=== PATIENT | female | born 1965 | race Hispanic/Latino ===

== ENCOUNTER 2018-01-18 00:54 | Emergency (ER) | payer OTHER ==
[~2018-01-18] VITALS: Ht 167.6 cm; Wt 78.9 kg
[2018-01-18] MEDS ORDERED: SODIUM CHLORIDE 0.9% 1000ML 1,000 ML ONE (01:20)
[2018-01-18] MEDS ORDERED: ONDANSETRON HCL INJ 2 MG/ML VIAL ONE (01:24)
[2018-01-18 01:26] LABS: BASOPHILS % 0.4 % (0.0-1.0); EOSINOPHILS # (AUTO) 0.1 (0.0-0.4); EOSINOPHILS % 0.7 % (0.0-6.0); HEMATOCRIT 38.4 % (34.2-44.1); HEMOGLOBIN 13.1 g/dL (12.0-16.0); LYMPHOCYTES # (AUTO) 3.1 (1.0-3.2); LYMPHOCYTES % 28.2 % (18.0-39.1); MEAN CORPUSCULAR HEMOGLOBIN 30.7 pg (28-32); MEAN CORPUSCULAR HGB CONC 34.1 g/dL (31-35); MEAN CORPUSCULAR VOLUME 89.9 fL (81-99); MONOCYTES # (AUTO) 0.9 (0.2-0.8); MONOCYTES % 7.7 % (4.4-11.3); NEUTROPHILS # (AUTO) 6.9 (2.1-6.9); NEUTROPHILS % 62.7 % (38.7-80.0); PLATELET COUNT 291 x10e3/uL (140-360); RED BLOOD COUNT 4.27 x10e6/uL (3.6-5.1); RED CELL DISTRIBUTION WIDTH 12.4 % (11.7-14.4)
[2018-01-18 01:27] LABS: BILIRUBIN,URINE NEGATIVE (NEGATIVE); CLARITY,URINE CLEAR (CLEAR); COLOR,URINE YELLOW (YELLOW); KETONES,URINE TRACE (NEGATIVE); LEUKOCYTE ESTERASE ,URINE TRACE (NEGATIVE); NITRITE,URINE NEGATIVE (NEGATIVE); PROTEIN,URINE DIPSTICK NEGATIVE (NEGATIVE); URINE UROBILINOGEN 0.2 mg/dL (0.2 - 1)
[2018-01-18] MEDS ORDERED: ONDANSETRON HCL INJ 2 MG/ML VIAL IV STA (01:28)
[2018-01-18] MEDS ORDERED: ONDANSETRON HCL 4 MG ORAL DISINTEGRATING TAB PO ONE (01:30)
[2018-01-18] MEDS ORDERED: SODIUM CHLORIDE 0.9% 1000ML 1,000 ML IV ONE (01:30)
[2018-01-18 01:34] LABS: RBC,URINE 0-5 /HPF (0-5)
[2018-01-18 01:35] LABS: BACTERIA,URINE FEW /HPF; EPITHELIAL CELLS,URINE MODERATE /LPF
[2018-01-18 01:42] LABS: ALANINE AMINOTRANSFERASE 36 IU/L (0-55); ALBUMIN 3.8 g/dL (3.5-5.0); ALBUMIN/GLOBULIN RATIO 1.1 (0.8-2.0); ALKALINE PHOSPHATASE 113 IU/L (40-150); ANION GAP 12.9 mmol/L (8-16); BLOOD UREA NITROGEN 22 mg/dL (7-26); BUN/CREATININE RATIO 31 (6-25); CALCIUM 9.4 mg/dL (8.4-10.2); CARBON DIOXIDE 24 mmol/L (22-29); CHLORIDE 109 mmol/L (98-107); CREATINE KINASE 110 IU/L (29-168); CREATININE, SERUM 0.71 mg/dL (0.57-1.11); EST GLOMERULAR FILTRATION RATE > 60 ML/MIN (60-); GLUCOSE 214 mg/dL (74-118); POTASSIUM 3.9 mmol/L (3.5-5.1); SODIUM 142 mmol/L (136-145)
[2018-01-18 02:15] VITALS: BP 132/78
== END 2018-01-18 03:01 | disposition home or self-care (01) ==
LOC: ER 00:54
DX: E86.0 Dehydration (principal); R11.0 Nausea; N30.00 Acute cystitis without hematuria; R73.9 Hyperglycemia, unspecified; Z98.84 Bariatric surgery status
CPT/HCPCS: 36415; 80053; 81001; 82550; 82553; 84484; 85025; 93005; 96374; 99283; J2405; J7030

== ENCOUNTER 2019-02-14 20:27 | Emergency (ER) | payer OTHER ==
[~2019-02-14] VITALS: Ht 167.6 cm; Wt 78.9 kg
--- OUTSIDE RECORDS SUMMARY | 2019-02-14 20:30 | XMS REPORT | Clinical Summary ---
Author Author [facility] Address Unknown Phone Unavailable Care Team Providers Care Lag Screwer Name Role Phone Asked, No Pcp PCP Unavailable Allergies Comments Active Allergy Reactions Severity Noted Date Codeine Other (See Medium 10/09/2012 Comments) Meperidine Other (See 10/09/2012 Comments) Neuromuscular Blockers, Steroidal Medications No known medications Active Problems Problem Noted Date Left knee pain 12/09/2018 Degenerative disc disease, lumbar 12/09/2018 Encounters Care Team Description Date Type Specialty Nathan Esteves MD Park, Kwan Jun, MD Patellofemoral arthralgia of left knee (Primary Dx); Degenerative disc disease, lumbar 12/09/2018 Office Visit Orthopedic Surgery after 02/13/2018 Social History Date Tobacco Use Types Packs/Day Years Used Never Assessed Sex Assigned at Date Recorded Not on file Industry Job Start Date Occupation Not on file Not on file Not on file Travel End Travel History Travel Start No recent travel history available. Last Filed Vital Signs Not on file Plan of Treatment Health Maintenance Due Date Last Done Comments BREAST CANCER SCREENING 2013 COLONOSCOPY SCREENING 2013 SHINGLES VACCINES (#1) 2013 INFLUENZA VACCINE 03/06/2019 05/16/2017, 05/06/2016, 05/06/2015, Additional history exists Procedures Comments Procedure Name Priority Date/Time Associated Diagnosis XR LEG LENGTH EVALUATION Routine 12/09/2018 Left knee pain, 8:45 AM CDT unspecified chronicity XR KNEE 4+ VW LEFT Routine 12/09/2018 Left knee pain, 8:45 AM CDT unspecified chronicity after 02/13/2018 Results * XR Leg Length Evaluation (12/09/2018 8:45 AM CDT) Specimen Narrative Performed At [facility] Xrays of long legs demonstrate neutral alignment of bilateral lower extremities. There is evidence of degenerative lumbar disc disease with sclerosis and disc space narrowing. Performing Organization Address City/State/Zipcode Phone Number [facility] [address] [place] [address] * XR Knee 4+ Vw Left (12/09/2018 8:45 AM CDT) Specimen Narrative Performed At [facility] Xrays of the left knee demonstrate bilateral patellar tilt and minimal arthritic changes of the left knee. Some chondrosis of the underside of the left patella. Performing Organization Address City/State/Zipcode Phone Number [facility] [address] [place] [address] after 02/13/2018 Insurance Type Payer Benefit Subscriber ID Effective Phone Address Plan / Dates Group HMO JEREMY [employer]NA OPEN xxxxxxxxxxx 2017-P ACCESS/NET resent WORK ([place]) [place] [address] Advance Directives Patient has advance care planning documents on file. For more information, carmen mcgowan contact: Ruel Hammer [address] [place] [address]
--- OUTSIDE RECORDS SUMMARY | 2019-02-14 20:31 | XMS REPORT | Continuity of Care Document ---
Author Author [facility] [employer] Address Unknown Phone Unavailable Care Team Providers Care Training And Quality Manager Name Role Phone [employer] Unavailable Unavailable Problems Problem Status Onset Date Classification Date Reported Comments Source Elevated blood pressure 11/06/2018 Diagnosis 11/06/2018 [facility] Body mass index 30+ - obesity 11/06/2018 Diagnosis 11/06/2018 [facility] Nausea and vomiting 11/06/2018 Diagnosis 11/06/2018 [facility] Influenza-like illness 11/06/2018 Diagnosis 11/06/2018 [facility] Influenza-like symptoms 06/17/2018 Diagnosis 06/17/2018 [facility] Blood in urine 06/17/2018 Diagnosis 06/17/2018 [facility] Urinary tract infectious disease 06/17/2018 Diagnosis 06/17/2018 [facility] Urinary Tract Infectious Disease 06/17/2018 Problem 11/06/2018 [facility] Body Mass Index 30+ - Obesity 06/17/2018 Problem 11/06/2018 [facility] Blood in Urine 06/17/2018 Problem 11/06/2018 [facility] Influenza-like Symptoms 06/17/2018 Problem 11/06/2018 [facility] Proteinuria 06/17/2018 Problem 11/06/2018 [facility] Glycosuria 06/17/2018 Problem 11/06/2018 [facility] Ketonuria 06/17/2018 Problem 11/06/2018 [facility] Allergic rhinitis 05/10/2017 Diagnosis 05/10/2017 [facility] Upper respiratory infection 05/10/2017 Diagnosis 05/10/2017 [facility] Acute pharyngitis 01/01/2017 Diagnosis 01/01/2017 [facility] Cellulitis of hand 11/12/2016 Diagnosis 11/12/2016 [facility] Infection of toe 07/21/2016 Diagnosis 07/21/2016 [facility] Callosity on toe 07/21/2016 Diagnosis 07/21/2016 [facility] Acute sinusitis 05/16/2016 Diagnosis 05/16/2016 [facility] Eustachian tube disorder 05/16/2016 Diagnosis 05/16/2016 [facility] Sore throat symptom 03/31/2016 Diagnosis 03/31/2016 [facility] Onychomycosis Problem 05/10/2017 [facility] Eustachian Tube Disorder Problem 05/10/2017 [facility] Acute Sinusitis Problem 05/10/2017 [facility] Acute Pharyngitis Problem 05/10/2017 [facility] Sore Throat Symptom Problem 05/10/2017 [facility] Allergic Rhinitis Problem 05/10/2017 [facility] Infection of Toe Problem 05/10/2017 [facility] Callosity on Toe Problem 05/10/2017 [facility] Dizziness Problem 05/10/2017 [facility] Cough Problem 05/10/2017 [facility] Vomiting Active Problem 01/18/2018 [facility] Medications Medication Details Route Status Patient Instructions Ordering Provider Order Date Source Sulfamethoxazole 800 MG / Trimethoprim 160 MG Oral Tablet [Bactrim] Bactrim DS 800 mg-160 mg tablet Take 1 tablet every 12 hours by oral route as directed for 10 days. Active [facility] Fluticasone propionate 0.05 MG/ACTUAT Metered Dose Nasal [place] fluticasone 50 mcg/actuation nasal spray,suspension Inhale 2 sprays every day by intranasal route at bedtime for 7 days. Active [facility] levocetirizine dihydrochloride 5 MG Oral Tablet [Xyzal] Xyzal 5 mg tablet Take 1 tablet every day by oral route at bedtime for allergies. Active [facility] Azithromycin 250 MG Oral Tablet Zithromax Z-Kendall 250 mg tablet TAKE 2 TABLETS (500 MG) BY ORAL ROUTE ONCE DAILY FOR 1 DAY THEN 1 TABLET (250 MG) BY ORAL ROUTE ONCE DAILY FOR 4 DAYS Active [facility] benzonatate 200 MG Oral Capsule benzonatate 200 mg capsule Take 1 capsule 3 times a day by oral route as needed for cough for 10 days. Active [facility] Medrol (Kendall) 4 mg tablets in a dose pack Medrol (Kendall) 4 mg tablets in a dose pack Take as directed on package. Active [facility] Amoxicillin 875 MG / Clavulanate 125 MG Oral Tablet amoxicillin 875 mg-potassium clavulanate 125 mg tablet Take 1 tablet(s) every 12 hours by oral route as directed for 7 days. Active [facility] Azithromycin 500 MG Oral Tablet azithromycin 500 mg tablet Active [facility] Acetaminophen 21.7 MG/ML / Hydrocodone Bitartrate 0.5 MG/ML Oral Solution hydrocodone 7.5 mg-acetaminophen 325 mg/15 mL oral solution Active [facility] 3 ML insulin detemir 100 UNT/ML Pen Injector [Levemir] Levemir Flexpen 100 unit/mL (3 mL) solution subcutaneous insulin pen Active [facility] Levofloxacin 500 MG Oral Tablet levofloxacin 500 mg tablet Active [facility] NITROFURANTOIN, MACROCRYSTALS 25 MG / Nitrofurantoin, Monohydrate 75 MG Oral Capsule [Macrobid] Macrobid 100 mg capsule Take 1 capsule(s) every 12 hours by oral route with meals for 7 days. Active [facility] Mupirocin 20 MG/ML Topical Cream mupirocin 2 % topical cream Active [facility] 200 ACTUAT Albuterol 0.09 MG/ACTUAT Metered Dose Inhaler [ProAir] ProAir HFA 90 mcg/actuation aerosol inhaler Active [facility] Dextromethorphan 3 MG/ML / Promethazine Hydrochloride 1.25 MG/ML Oral Solution promethazine-DM 6.25 mg-15 mg/5 mL syrup Take 5 mL every 6 hours by oral route as needed for 5 days. Active [facility] tizanidine 4 MG Oral Tablet tizanidine 4 mg tablet Active [facility] valacyclovir 500 MG Oral Tablet valacyclovir 500 mg tablet Active [facility] 3 ML liraglutide 6 MG/ML Pen Injector [Victoza] Victoza 3-Kendall 0.6 mg/0.1 mL (18 mg/3 mL) subcutaneous pen injector Active [facility] 200 ACTUAT Albuterol 0.09 MG/ACTUAT Metered Dose Inhaler albuterol sulfate HFA 90 mcg/actuation aerosol inhaler Inhale 2 puffs every 4 hours by inhalation route as needed. Active [facility] Prednisone 20 MG Oral Tablet prednisone 20 mg tablet Take 1 tablet every day by oral route with meals for 3 days. Active [facility] Cephalexin 500 MG Oral Capsule cephalexin 500 mg capsule Active [facility] Ciprofloxacin 500 MG Oral Tablet ciprofloxacin 500 mg tablet Active [facility] Doxepin Hydrochloride 50 MG/ML Topical Cream doxepin 5 % topical cream Active [facility] Ibuprofen 400 MG Oral Tablet ibuprofen 400 mg tablet Active [facility] levocetirizine dihydrochloride 5 MG Oral Tablet levocetirizine 5 mg tablet Take 1 tablet every day by oral route at bedtime for allergies. Active [facility] Lidocaine 0.05 MG/MG Topical Ointment lidocaine 5 % topical ointment Active [facility] Lidocaine Hydrochloride 20 MG/ML Mucous Membrane Topical Solution Lidocaine Viscous 2 % mucosal solution Take 15 mL every 3 hours by oral route as needed. Active [facility] Mupirocin 0.02 MG/MG Topical Ointment mupirocin 2 % topical ointment APPLY A SMALL AMOUNT TO THE AFFECTED AREA BY TOPICAL ROUTE 3 TIMES PER DAY Active [facility] Sulfamethoxazole 800 MG / Trimethoprim 160 MG Oral Tablet sulfamethoxazole 800 mg-trimethoprim 160 mg tablet Take 1 tablet every 12 hours by oral route as directed for 10 days. Active [facility] Ondansetron 8 MG Disintegrating Oral Tablet ondansetron [address] 1 tablet every 8 hours by translingual route for 2 days. Active [facility] Oseltamivir 75 MG Oral Capsule [Tamiflu] Tamiflu 75 mg capsule Take 1 capsule twice a day by oral route for 5 days. Active [facility] Ciprofloxacin 250 MG Oral Tablet ciprofloxacin 250 mg tablet Take 1 tablet every 12 hours by oral route as directed for 3 days. Active [facility] Allergies, Adverse Reactions, Alerts Substance Category Reaction Severity Reaction type Status Date Reported Comments Source Codeine Vomiting Moderate Allergy to substance 03/16/2016 [facility] Meperidine Unknown Allergy to Substance Active 01/18/2018 [facility] Immunizations Immunization Date Given Site Status Last Updated Comments Source influenza, injectable, quadrivalent 05/06/2018 completed [facility] influenza, injectable, quadrivalent 05/03/2017 completed [facility] influenza, unspecified formulation 05/06/2016 completed [facility] influenza, seasonal, injectable 05/06/2015 completed [facility] Tdap 08/06/2010 completed [facility] Results Order Name Results Value Reference Range Date Interpretation Comments Source Influenza A negative 11/06/2018 [facility] Influenza B negative 11/06/2018 [facility] Glucose [Mass/volume] in Capillary blood Results 167 06/17/2018 [facility] Urinalysis macro (dipstick) panel - Urine COLOR : Suzanne 06/17/2018 [facility] Urinalysis macro (dipstick) panel - Urine CLARITY : Turbid 06/17/2018 [facility] Urinalysis macro (dipstick) panel - Urine LEUKOCYTES : Moderate 06/17/2018 [facility] Urinalysis macro (dipstick) panel - Urine NITRITES : Negative 06/17/2018 [facility] Urinalysis macro (dipstick) panel - Urine UROBILINOGEN : Normal 06/17/2018 [facility] Urinalysis macro (dipstick) panel - Urine PROTEIN : 100 06/17/2018 [facility] Urinalysis macro (dipstick) panel - Urine pH : 8.5 06/17/2018 [facility] Urinalysis macro (dipstick) panel - Urine BLOOD : Negative 06/17/2018 [facility] Urinalysis macro (dipstick) panel - Urine SPECIFIC GRAVITY : 1.005 06/17/2018 [facility] Urinalysis macro (dipstick) panel - Urine KETONES : Trace 06/17/2018 [facility] Urinalysis macro (dipstick) panel - Urine BILIRUBIN : Small 06/17/2018 [facility] Urinalysis macro (dipstick) panel - Urine GLUCOSE 100 06/17/2018 [facility] Influenza A negative 06/17/2018 [facility] Influenza B negative 06/17/2018 [facility] Automated blood basophil count (count/volume) Automated blood basophil count (count/volume) 0.0 0.0 - 0.1 01/18/2018 [facility] Automated blood basophil count as percentage of total leukocytes Automated blood basophil count as percentage of total leukocytes 0.4 0.0 - 1.0 01/18/2018 [facility] Automated blood eosinophil count Automated blood eosinophil count 0.1 0.0 - 0.4 01/18/2018 [facility] Automated blood eosinophil count as percentage of total leukocytes Automated blood eosinophil count as percentage of total leukocytes 0.7 0.0 - 6.0 01/18/2018 [facility] Automated blood hematocrit (volume fraction) Automated blood hematocrit (volume fraction) 38.4 34.2 - 44.1 01/18/2018 [facility] Automated blood lymphocyte count as percentage ot total leukocytes Automated blood lymphocyte count as percentage ot total leukocytes 28.2 18.0 - 39.1 01/18/2018 [facility] Automated blood monocyte count as percentage of total leukocytes Automated blood monocyte count as percentage of total leukocytes 7.7 4.4 - 11.3 01/18/2018 [facility] Automated blood neutrophil count Automated blood neutrophil count 6.9 2.1 - 6.9 01/18/2018 [facility] Automated blood platelet count (count/volume) Automated blood platelet count (count/volume) 291 140 - 360 01/18/2018 [facility] Automated blood segmented neutrophil count as percentage of total leukocytes Automated blood segmented neutrophil count as percentage of total leukocytes 62.7 38.7 - 80.0 01/18/2018 [facility] Automated erythrocyte mean corpuscular hemoglobin (mass per erythrocyte) Automated erythrocyte mean corpuscular hemoglobin (mass per erythrocyte) 30.7 28 - 32 01/18/2018 [facility] Automated erythrocyte mean corpuscular hemoglobin concentration measurement (mass/volume) Automated erythrocyte mean corpuscular hemoglobin concentration measurement (mass/volume) 34.1 31 - 35 01/18/2018 [facility] Automated erythrocyte mean corpuscular volume Automated erythrocyte mean corpuscular volume 89.9 81 - 99 01/18/2018 [facility] Automated urine sediment leukocyte count by microscopy (number/high power field) Automated urine sediment leukocyte count by microscopy (number/high power field) <10 0 - 5 01/18/2018 [facility] Bacteria detection in urine sediment by light microscopy Bacteria detection in urine sediment by light microscopy FEW NONE 01/18/2018 [facility] Blood erythrocytes automated count (number/volume) Blood erythrocytes automated count (number/volume) 4.27 3.6 - 5.1 01/18/2018 [facility] Blood hemoglobin measurement (moles/volume) Blood hemoglobin measurement (moles/volume) 13.1 12.0 - 16.0 01/18/2018 [facility] Blood leukocytes automated count (number/volume) Blood leukocytes automated count (number/volume) 11.04 4.8 - 10.8 01/18/2018 [facility] Blood lymphocytes count (number/volume) Blood lymphocytes count (number/volume) 3.1 1.0 - 3.2 01/18/2018 [facility] Blood monocytes automated count (number/volume) Blood monocytes automated count (number/volume) 0.9 0.2 - 0.8 01/18/2018 [facility] Epithelial cells detection in urine sediment by light microscopy Epithelial cells detection in urine sediment by light microscopy MODERATE NONE 01/18/2018 [facility] Erythrocytes detection in urine sediment by light microscopy Erythrocytes detection in urine sediment by light microscopy <5 0 - 5 01/18/2018 [facility] Estimated glomerular filtration rate (GFR) determination Estimated glomerular filtration rate (GFR) determination >60 60 01/18/2018 [facility] Glucose measurement Glucose measurement 214 74 - 118 01/18/2018 [facility] Plasma globulin measurement (mass/volume) Plasma globulin measurement (mass/volume) 3.5 2.3 - 3.5 01/18/2018 [facility] Serum or plasma alanine aminotransferase measurement (enzymatic activity/volume) Serum or plasma alanine aminotransferase measurement (enzymatic activity/volume) 36 0 - 55 01/18/2018 [facility] Serum or plasma albumin measurement (mass/volume) Serum or plasma albumin measurement (mass/volume) 3.8 3.5 - 5.0 01/18/2018 [facility] Serum or plasma albumin/globulin mass ratio Serum or plasma albumin/globulin mass ratio 1.1 0.8 - 2.0 01/18/2018 [facility] Serum or plasma alkaline phosphatase measurement (enzymatic activity/volume) Serum or plasma alkaline phosphatase measurement (enzymatic activity/volume) 113 40 - 150 01/18/2018 [facility] Serum or plasma anion gap Serum or plasma anion gap 12.9 8 - 16 01/18/2018 [facility] Serum or plasma calcium measurement (mass/volume) Serum or plasma calcium measurement (mass/volume) 9.4 8.4 - 10.2 01/18/2018 [facility] Serum or plasma carbon dioxide, total measurement (moles/volume) Serum or plasma carbon dioxide, total measurement (moles/volume) 24 22 - 29 01/18/2018 [facility] Serum or plasma chloride measurement (moles/volume) Serum or plasma chloride measurement (moles/volume) 109 98 - 107 01/18/2018 [facility] Serum or plasma creatine kinase MB measurement (mass/volume) Serum or plasma creatine kinase MB measurement (mass/volume) 1.50 0 - 5.0 01/18/2018 [facility] Serum or plasma creatine kinase measurement (enzymatic activity/volume) Serum or plasma creatine kinase measurement (enzymatic activity/volume) 110 29 - 168 01/18/2018 [facility] Serum or plasma creatinine measurement (mass/volume) Serum or plasma creatinine measurement (mass/volume) 0.71 0.57 - 1.11 01/18/2018 [facility] Serum or plasma potassium measurement (moles/volume) Serum or plasma potassium measurement (moles/volume) 3.9 3.5 - 5.1 01/18/2018 [facility] Serum or plasma protein measurement (mass/volume) Serum or plasma protein measurement (mass/volume) 7.3 6.5 - 8.1 01/18/2018 [facility] Serum or plasma sodium measurement (moles/volume) Serum or plasma sodium measurement (moles/volume) 142 136 - 145 01/18/2018 [facility] Serum or plasma total bilirubin measurement (mass/volume) Serum or plasma total bilirubin measurement (mass/volume) 0.3 0.2 - 1.2 01/18/2018 [facility] Serum or plasma urea nitrogen measurement (mass/volume) Serum or plasma urea nitrogen measurement (mass/volume) 22 7 - 26 01/18/2018 [facility] Serum or plasma urea nitrogen/creatinine mass ratio Serum or plasma urea nitrogen/creatinine mass ratio 31 6 - 25 01/18/2018 [facility] Specific gravity of Urine by Test strip Specific gravity of Urine by Test strip 1.015 1.010 - 1.025 01/18/2018 [facility] Troponin I measurement by highly sensitive enzyme immunoassay Troponin I measurement by highly sensitive enzyme immunoassay <0.001 0 - 0.300 01/18/2018 [facility] Urine clarity Urine clarity CLEAR CLEAR 01/18/2018 [facility] Urine color determination Urine color determination YELLOW YELLOW 01/18/2018 [facility] Urine erythrocytes detection Urine erythrocytes detection NEGATIVE NEGATIVE 01/18/2018 [facility] Urine glucose detection Urine glucose detection 2+ NEGATIVE 01/18/2018 [facility] Urine ketones detection by automated test strip Urine ketones detection by automated test strip TRACE NEGATIVE 01/18/2018 [facility] Urine leukocyte esterase detection by dipstick Urine leukocyte esterase detection by dipstick TRACE NEGATIVE 01/18/2018 [facility] Urine nitrite detection Urine nitrite detection NEGATIVE NEGATIVE 01/18/2018 [facility] Urine pH measurement by automated test strip Urine pH measurement by automated test strip 6.5 5 - 7 01/18/2018 [facility] Urine protein measurement by test strip (mass/volume) Urine protein measurement by test strip (mass/volume) NEGATIVE NEGATIVE 01/18/2018 [facility] Urine total bilirubin measurement (mass/volume) Urine total bilirubin measurement (mass/volume) NEGATIVE NEGATIVE 01/18/2018 [facility] Urine urobilinogen measurement by test strip (mass/volume) Urine urobilinogen measurement by test strip (mass/volume) 0.2 0.2 - 1 01/18/2018 [facility] Red Cell Distribution Width 12.4 11.7 - 14.4 01/18/2018 [facility] IM GRANULOCYTES % 0.3 0.0 - 1.0 01/18/2018 [facility] Absolute Immature Granulocyte (auto 0.03 0 - 0.1 01/18/2018 [facility] Aspartate Amino Transf (AST/SGOT) 18 5 - 34 01/18/2018 [facility] RESULT negative 01/01/2017 [facility] SWAB LOCATION Left and Right tonsillar pillars 01/01/2017 [facility] Influenza A negative 05/16/2016 [facility] Influenza B negative 05/16/2016 [facility] RESULT negative 05/16/2016 [facility] SWAB LOCATION Left and Right tonsillar pillars 05/16/2016 [facility] Glucose [Mass/volume] in Capillary blood Results 116 03/31/2016 [facility] Urinalysis macro (dipstick) panel - Urine COLOR : Yellow 03/31/2016 [facility] Urinalysis macro (dipstick) panel - Urine CLARITY : Clear 03/31/2016 [facility] Urinalysis macro (dipstick) panel - Urine LEUKOCYTES : Small 03/31/2016 [facility] Urinalysis macro (dipstick) panel - Urine NITRITES : Negative 03/31/2016 [facility] Urinalysis macro (dipstick) panel - Urine UROBILINOGEN : Normal 03/31/2016 [facility] Urinalysis macro (dipstick) panel - Urine PROTEIN : Trace 03/31/2016 [facility] Urinalysis macro (dipstick) panel - Urine pH : 5.5 03/31/2016 [facility] Urinalysis macro (dipstick) panel - Urine BLOOD : Negative 03/31/2016 [facility] Urinalysis macro (dipstick) panel - Urine SPECIFIC GRAVITY : 1.020 03/31/2016 [facility] Urinalysis macro (dipstick) panel - Urine KETONES : Negative 03/31/2016 [facility] Urinalysis macro (dipstick) panel - Urine BILIRUBIN : Negative 03/31/2016 [facility] Urinalysis macro (dipstick) panel - Urine GLUCOSE 250 (+) 03/31/2016 [facility] RESULT negative 03/31/2016 [facility] SWAB LOCATION Left and Right tonsillar pillars 03/31/2016 [facility] Bacteria identified in Urine by Culture Bacteria identified in Urine by Culture Result 1 03/17/2016 [facility] Glucose [Mass/volume] in Capillary blood Results 116 03/15/2016 [facility] Urinalysis macro (dipstick) panel - Urine COLOR : Yellow 03/15/2016 [facility] Urinalysis macro (dipstick) panel - Urine CLARITY : Clear 03/15/2016 [facility] Urinalysis macro (dipstick) panel - Urine LEUKOCYTES : Small 03/15/2016 [facility] Urinalysis macro (dipstick) panel - Urine NITRITES : Negative 03/15/2016 [facility] Urinalysis macro (dipstick) panel - Urine UROBILINOGEN : Normal 03/15/2016 [facility] Urinalysis macro (dipstick) panel - Urine PROTEIN : Trace 03/15/2016 [facility] Urinalysis macro (dipstick) panel - Urine pH : 5.5 03/15/2016 [facility] Urinalysis macro (dipstick) panel - Urine BLOOD : Negative 03/15/2016 [facility] Urinalysis macro (dipstick) panel - Urine SPECIFIC GRAVITY : 1.020 03/15/2016 [facility] Urinalysis macro (dipstick) panel - Urine KETONES : Negative 03/15/2016 [facility] Urinalysis macro (dipstick) panel - Urine BILIRUBIN : Negative 03/15/2016 [facility] Urinalysis macro (dipstick) panel - Urine GLUCOSE 250 (+) 03/15/2016 [facility] Pathology Reports No Data Provided for This Section Diagnostic Reports No Data Provided for This Section Consultation Notes No Data Provided for This Section Discharge Summaries No Data Provided for This Section History and Physicals No Data Provided for This Section Vital Signs Vital Sign Value Date Comments Source Diastolic (mm Hg) 74 11/06/2018 [facility] Height 66 11/06/2018 [facility] Systolic (mm Hg) 120 11/06/2018 [facility] Weight 194 11/06/2018 [facility] Diastolic (mm Hg) 74 06/17/2018 [facility] Height 66 06/17/2018 [facility] Systolic (mm Hg) 116 06/17/2018 [facility] Weight 198 06/17/2018 [facility] Diastolic (mm Hg) 82 05/10/2017 [facility] Height 66 05/10/2017 [facility] Systolic (mm Hg) 114 05/10/2017 [facility] Weight 195 05/10/2017 [facility] Diastolic (mm Hg) 74 01/01/2017 [facility] Height 66 01/01/2017 [facility] Systolic (mm Hg) 130 01/01/2017 [facility] Weight 197 01/01/2017 [facility] Diastolic (mm Hg) 82 11/12/2016 [facility] Height 66 11/12/2016 [facility] Systolic (mm Hg) 134 11/12/2016 [facility] Weight 198 11/12/2016 [facility] Diastolic (mm Hg) 74 07/21/2016 [facility] Height 66 07/21/2016 [facility] Systolic (mm Hg) 122 07/21/2016 [facility] Weight 192 07/21/2016 [facility] Diastolic (mm Hg) 85 05/16/2016 [facility] Height 65 05/16/2016 [facility] Systolic (mm Hg) 123 05/16/2016 [facility] Weight 180 05/16/2016 [facility] Diastolic (mm Hg) 80 03/31/2016 [facility] Height 65 03/31/2016 [facility] Systolic (mm Hg) 122 03/31/2016 [facility] Weight 179 03/31/2016 [facility] Diastolic (mm Hg) 80 03/15/2016 [facility] Height 66 03/15/2016 [facility] Systolic (mm Hg) 130 03/15/2016 [facility] Weight 178 03/15/2016 [facility] Encounters Location Location Details Encounter Type Encounter Number Reason For Visit Attending Provider ADM Date DC Date Status Source [place] - [facility] - [id number] Ce Urlich, SOAP INSPECTOR: [address] [place] [address], Ph. [id number] eC Ulrich 03/15/2016 [facility] [place] [facility] - [id number] Ulrich, SOAP INSPECTOR: [address] [place] [address], Ph. [id number] Ce Ulrich 03/15/2016 [facility] [place] [facility] - [id number] Cherelle Hooks, SOAP INSPECTOR: [address], [place] [address], Ph. [id number] Cherelle Hooks 03/31/2016 [facility] [place] [facility] - [id number] Cherelle Hooks, SOAP INSPECTOR: [address] [facility], [place] [address], Ph. [id number] Cherelle Neva 05/16/2016 [facility] [place] [facility] - [id number] Cherelle Neva, SOAP INSPECTOR: [address], [place] [address], Ph. [id number] Cherelle Neva 07/21/2016 [facility] [place] [facility] - [id number] Patricia Gomesroy, SOAP INSPECTOR-C: [address], [place] [address], Ph. [id number] Patricia Bernadette 11/12/2016 [facility] [place] [facility] - [id number] Thackery, SOAP INSPECTOR-C: [address], [place] [address], Ph. [id number] Patricia Fleming 01/01/2017 [facility] [place] [facility] - [id number] Tillmanen, SOAP INSPECTOR-C: [address], [place] [address], Ph. [phone] [id number] Narciso Hooks 05/10/2017 [facility] Departed Emergency Room [id number] KELLY ASH MD 01/18/2018 01/18/2018 [facility] [place] - [facility] - [id number] Fleming, SOAP INSPECTOR-C: [address], [place] [address], Ph. [id number] Patricia Fleming 06/17/2018 [facility] [place] [facility] - [id number] Jeri Martin, [facility]-C: [address] [address], [place] [address], Ph. [id number] Jeri Martin 11/06/2018 [facility] Procedures No Data Provided for This Section Assessment and Plan No Data Provided for This Section Plan of Care Plan of Care Date Source Discharge Date 01/18/18 3:01am Disposition HOME, SELF-CARE Condition at Discharge Stable Instructions/Education Provided Dehydration - Adult Hyperglycemia Urinary Tract Infection - Women Forms Provided Work/School Excuse Prescriptions See Medication Section Referrals SULEMAN JOYA MD Order Date: Call for an appointment Address: [address] [place] [address] Additional Instructions/Education TAKE MEDICATIONS PRESCRIBED. FOLLOW UP WITH YOUR DOCTOR. CALL FOR APPOINTMENT. 01/18/2018 [facility] Social History Social History Date Source Smoking Status Start Date Stop Date Never Smoker 01/18/2018 [facility] Smoking Status Never Smoker 12/28/2014 [facility] Family History No Data Provided for This Section Advance Directives Order Name Results Value Date Source Advance Directives Advance Directives Directive Response Recorded Date/Time Does the patient have an advance directive? No 05/13/08 7:29am If yes, is advance directive on file with [facility]? No 05/13/08 7:29am If not on file with [facility] will patient provide a copy? No 03/01/14 10:23am Do you have a Directive to Physician? No 01/18/18 12:52am Do you have a Medical Power of Forensic Engineer? No 01/18/18 12:52am Do you have an out of hospital Do Not Resuscitate Order? No 01/18/18 12:52am Do you have any special needs we should be aware of? No 01/18/18 12:52am Do you have a support person here with you today? Yes 01/18/18 12:52am Did patient receive Notice of Privacy Practices? Yes 01/18/18 12:52am Did patient receive patient rights and responsibilities? Yes 01/18/18 12:52am 01/18/2018 [facility] Functional Status No Data Provided for This Section
--- OUTSIDE RECORDS SUMMARY | 2019-02-14 20:32 | XMS REPORT | Encounter Summary ---
Author Organization Unknown Address [address] [place] [address] Phone [phone] Reason for Visit Medical Complaint Instructions 1. Upper respiratory infection upper respiratory infection (cold): care instructions 2. Allergic rhinitis allergies: care instructions managing your allergies: care instructions prednisone 20 mg tablet albuterol sulfate HFA 90 mcg/actuation aerosol inhaler Discussion Note: None recorded. Plan of Care Patient Instructions consider a trial of flonase and zyrtec if you havent already. follow up pcp Reminders Provider Appointments None recorded. Lab None recorded. Referral None recorded. Procedures None recorded. Surgeries None recorded. Imaging None recorded. Medications Name Start Date albuterol sulfate HFA 90 mcg/actuation aerosol inhaler Inhale 2 puffs every 4 hours by inhalation route as needed. prednisone 20 mg tablet Take 1 tablet every day by oral route with meals for 3 days. Medications Administered None recorded. Vitals Height Weight BMI Blood Pressure 5 ft 6 in 195 lbs 31.5 kg/m2 114/82 mm[Hg] Lab Results None recorded. Allergies Code Code System Name Reaction Severity Status Onset 2670 RxNorm Codeine Vomiting Moderate Active Problems Name Status Onset Date Source Onychomycosis Active Encounter Eustachian Tube Disorder Active Encounter Acute Sinusitis Active Encounter Acute Pharyngitis Active Encounter Sore Throat Symptom Active Encounter Allergic Rhinitis Active Encounter Urinary Tract Infectious Disease Active Encounter Infection of Toe Active Encounter Callosity on Toe Active Encounter Dizziness Active Encounter Cough Active Encounter Procedures None recorded. Vaccine List Vaccine Type influenza, injectable, quadrivalent 05/03/2017 influenza, seasonal, injectable 05/06/2015 influenza, unspecified formulation 05/06/2016 Tdap 08/06/2010 Social History Smoking Status Never Smoker Past Encounters 05/10/2017 Upper Respiratory Infection; Allergic Rhinitis [facility]: [address] [place] [address], Ph. History of Present Illness Rjyni-Exteczqpqd-Angqwdd Reported By: Patient HPI: Location: head/sinuses. Quality: nasal/sinus congestion, dry cough. Duration: 4days. Severity: moderate. Onset/Timing: gradual. Context: no sick contacts, no foreign travel, non-smoker. Modifying factors: OTC medication. Associated Symptoms: no sputum production, no shortness of breath, no wheezing, no change in number of pillows needed to sleep at night, no sweats, no significant weight gain, no significant weight loss, no morning cough, no sore throat, no vomiting, no diarrhea, no rash, no nausea, no fever, no muscle aches, no headache Review of Systems:ROS as noted in the HPI Review of Systems Basic Reported By: Patient Physical Exam Adult Basic, Adult Female Complete Reported By: Patient Constitutional: General Appearance: healthy-appearing, well-nourished, well-developed. Level of Distress: NAD. Ambulation: ambulating normally Psychiatric: Mental Status: active and alert Eyes: Lids and Conjunctivae: non-injected, no discharge Rhs-Smmq-Yvhns-Throat: Ears: no lesions on external ear, no outer ear tenderness, EACs clear, TMs clear. Hearing: no hearing loss. Nose: no lesions on external nose, nares patent, no septal deviation, nasal passages clear, no sinus tenderness, no nasal discharge. Lips, Teeth, and Gums: no mouth or lip ulcers. Oropharynx: moist mucous membranes, no erythema, no exudates, tonsils not enlarged Neck: Neck: trachea midline. Lymph Nodes: no cervical LAD Lungs: Respiratory effort: no dyspnea, no tachypnea, no use of accessory muscles, no intercostal retractions. Auscultation: breath sounds normal Cardiovascular: Heart Auscultation: RRR, no murmurs Notes: 51 yo female with congestion, runny nose, cough for 4 days.
--- OUTSIDE RECORDS SUMMARY | 2019-02-14 20:32 | XMS REPORT | Encounter Summary ---
Author Organization Unknown Address [address] [place] [address] Phone [phone] Reason for Visit Medical Complaint Instructions 1. Upper respiratory infection upper respiratory infection (cold): care instructions levocetirizine 5 mg tablet 2. Acute pharyngitis sore throat: care instructions Lidocaine Viscous 2 % mucosal solution rapid strep group A, throat Discussion Note Pt is in NAD; Verbalizes understanding of all instructions with no questions at this time. Plan of Care Patient Instructions Contine fluticasone (flonase) as needed for nasal congestion. [place] one spray in each nostril twice a day. Take a warm, steamy shower, blow your nose thereafter, and spray in each nostril. Tilt your head up for about 10 seconds and breath through your mouth. Do not sniff or snort the medication in or else the medication will go to your throat and not be absorbed appropriately. Gargle and spit viscous lidocaine as needed for sore throat as directed. Start levocetirizine as directed for runny nose and watery eyes. Take over the counter Mucinex DM and use as per package insert. Alternate with Ibuprofen and acetaminophen every 4hrs as needed for pain/fever/pain Proper hydration and rest. Return to work/school if free of fever for 24-hrs Do not share any utensils/cups, no kissing, recommend hand washing after coughing/sneezing/blowing nose and cover face when you do so Take medications as prescribed. Return to clinic or follow up with your PCP within 2-3 days if symptoms worsen as discussed. Reminders Provider Appointments None recorded. Lab Rapid Strep Group a, Throat 01/01/2017 [facility] Referral None recorded. Procedures None recorded. Surgeries None recorded. Imaging None recorded. Medications Name Start Date cephalexin 500 mg capsule ciprofloxacin 500 mg tablet doxepin 5 % topical cream ibuprofen 400 mg tablet levocetirizine 5 mg tablet Take 1 tablet every day by oral route at bedtime for allergies. lidocaine 5 % topical ointment Lidocaine Viscous 2 % mucosal solution Take 15 mL every 3 hours by oral route as needed. mupirocin 2 % topical ointment APPLY A SMALL AMOUNT TO THE AFFECTED AREA BY TOPICAL ROUTE 3 TIMES PER DAY sulfamethoxazole 800 mg-trimethoprim 160 mg tablet Take 1 tablet every 12 hours by oral route as directed for 10 days. Medications Administered None recorded. Vitals Height Weight BMI Blood Pressure 5 ft 6 in 197 lbs 31.8 130/74 Lab Results Date Name Specimen Result Interpretation Description Value Range Status Address Rapid Strep Group a, Throat Result negative [facility]: [address] [place] [address] Swab Location Left and Right tonsillar pillars [facility]: [address] [place] [address] Allergies Code Code System Name Reaction Severity Onset 2340 RxNorm Codeine Vomiting Moderate Problems Name Status Onset Date Source Onychomycosis Active Encounter Eustachian Tube Disorder Active Encounter Acute Sinusitis Active Encounter Acute Pharyngitis Active Encounter Sore Throat Symptom Active Encounter Allergic Rhinitis Active Encounter Urinary Tract Infectious Disease Active Encounter Infection of Toe Active Encounter Callosity on Toe Active Encounter Dizziness Active Encounter Cough Active Encounter Procedures None recorded. Vaccine List Vaccine Type influenza, seasonal, injectable 05/05/2015 influenza, unspecified formulation 05/05/2016 Tdap 08/05/2010 Social History Smoking Status Never Smoker Past Encounters 01/01/2017 Upper Respiratory Infection; Acute Pharyngitis Patricia Fleming, [facility]: [address] [place] [address], Ph. History of Present Illness Fqmawrx-Zmrwj-Cpe Reported By: Patient HPI: Duration: 1 days. Severity: subjective temperature. Context: no ill contacts, no tick/insect bites, no recent travel, no new medications. Associated Symptoms: no headache, no muscle aches, no rash, no lethargy, fever/chills, cough, nasal discharge; sore throat. Modifying Factors OTC medication Review of Systems:ROS as noted in the HPI Review of Systems Basic Reported By: Patient Physical Exam Adult Basic, 14-21 Yr Male, Adult Female Complete Reported By: Patient Constitutional: General Appearance: healthy-appearing, well-nourished, well-developed. Level of Distress: NAD. Ambulation: ambulating normally Psychiatric: Mental Status: active and alert. Orientation: to time, to place, to person Eyes: Lids and Conjunctivae: non-injected Dfa-Iaiy-Pwvhu-Throat: Ears: no lesions on external ear, no outer ear tenderness, EACs clear, TMs clear. Hearing: no hearing loss. Nose: no lesions on external nose, nares patent, no septal deviation, nasal passages clear, no sinus tenderness, nasal discharge--rhinorrhea, post nasal drip; edematous nasal turbinates bilaterally. Lips, Teeth, and Gums: no mouth or lip ulcers, no bleeding gums, normal dentition. Oropharynx: moist mucous membranes, no exudates, tonsils not enlarged, erythema Neck: Lymph Nodes: no cervical LAD Lungs: Respiratory effort: no dyspnea, no tachypnea, no use of accessory muscles, no intercostal retractions. Auscultation: breath sounds normal Cardiovascular: Heart Auscultation: RRR, no murmurs Neurologic: Gait and Station: normal gait, normal station
--- OUTSIDE RECORDS SUMMARY | 2019-02-14 20:32 | XMS REPORT | Encounter Summary ---
Author Organization Unknown Address [address] [place] [address] Phone [phone] Reason for Visit Medical Complaint Instructions 1. Urinary tract infectious disease urinary tract infection in women: care instructions urinalysis, dipstick ciprofloxacin 250 mg tablet culture, urine 2. Glycosuria glucose, fingerstick, blood 3. Proteinuria proteinuria: care instructions 4. Blood in urine blood in the urine: care instructions 5. Ketonuria 6. Influenza-like symptoms rapid flu (A+B) 7. Body mass index 30+ - obesity learning about healthy weight Discussion Note Pt is in NAD; Verbalizes understanding of all instructions with no questions at this time. Plan of Care Patient Instructions Take tylenol over the counter for pain/headache/fever as per pacakge insert. Take medications as prescribed and follow up with a PCP within 2-3 if symptoms worsen as discussed. Recommend proper hydration and frequent urination. Avoid douching, Recommend urinating after sexual intercourse. Recommend wipe front to back after urinating. Avoid using tubs. Take medications as prescribed. Follow up with your PCP within 2-3 days if symptoms worsen as discussed and within a week for re-assessment of ketones, bilirubin, protein and blood in urine. Recommend follow a low sodium/fat/carb diet and exercise 30-45 mins/d 3-4 days a week once symptoms resolve. In case of an emergency call 911 or go to nearest ER. Reminders Provider Appointments None recorded. Lab Urinalysis, Dipstick 06/17/2018 [facility] Glucose, Fingerstick, Blood 06/17/2018 [facility] Rapid Flu (A+B) 06/17/2018 [facility] Culture, Urine 06/17/2018 [facility] Referral None recorded. Procedures None recorded. Surgeries None recorded. Imaging None recorded. Medications Name Start Date ciprofloxacin 250 mg tablet Take 1 tablet every 12 hours by oral route as directed for 3 days. Medications Administered None recorded. Vitals Height Weight BMI Blood Pressure 5 ft 6 in 198 lbs 32 kg/m2 116/74 mm[Hg] Lab Results Date Name Specimen Result Interpretation Description Value Range Status Address Rapid Flu (A+B) Influenza a negative [facility]: [address] [place] [address] Influenza B negative [facility]: [facility] Glucose, Fingerstick, Blood Results 167 [facility]: [address] [place] [address] Urinalysis, Dipstick Color : Suzanne [facility]: [address] [place] [address] Clarity : Turbid [facility]: [address] [place] [address] Leukocytes : Moderate [facility]: [facility] Nitrites : Negative [facility]: [address] [place] [address] Urobilinogen : Normal [facility]: [address] [place] [address] Protein : 100 [facility]: [address] [place] [address] Ph : 8.5 [facility]: [address] [place] [address] Blood : Negative [facility]: [address] [place] [address] Specific Bennett : 1.005 [facility]: [address] [place] [address] Ketones : Trace [facility]: [address] [place] [address] Bilirubin : Small [facility]: [address] [place] [address] Glucose 100 [facility]: [address] [place] [address] Allergies Code Code System Name Reaction Severity Status Onset 2670 RxNorm Codeine Vomiting Moderate Active Problems Name Status Onset Date Source Body Mass Index 30+ - Obesity Active 06/17/2018 Urinary Tract Infectious Disease Active 06/17/2018 Blood in Urine Active 06/17/2018 Influenza-like Symptoms Active 06/17/2018 Proteinuria Active 06/17/2018 Glycosuria Active 06/17/2018 Ketonuria Active 06/17/2018 Procedures None recorded. Vaccine List Vaccine Type influenza, injectable, quadrivalent 05/03/2017 05/06/2018 influenza, seasonal, injectable 05/06/2015 influenza, unspecified formulation 05/06/2016 Tdap 08/06/2010 Social History Smoking Status Never Smoker Past Encounters 06/17/2018 Urinary Tract Infectious Disease; Glycosuria; Proteinuria; Blood in Urine; Ketonuria; Influenza-like Symptoms; Body Mass Index 30+ - Obesity Patricia Fleming, [facility]: [address] [place] [address], Ph. History of Present Illness Iektcz-ZYN-Nuxyodv Reported By: Patient HPI: Location: urethra. Quality: pressure. Severity: worsening, moderate. Duration: constant. Onset/Timing: worse, gradual. Context: no known exposure to STD, no prior history of STDs, history of urine cultures/antibiotic treatment, wipes anterior to posterior; Pt reports she had h/o pre-diabetes before her gastric sleeve. After the procedure her pre-diabetes resolved, however she reports that when she gets sick her blood glucose goes up. Modifying factors nothing makes it worse. Associated Symptoms: no flank pain, no jaundice, no blood in the urine, no vaginal discharge, no blisters on genitals, no rash on genitals, no muscle aches, fever/chills, pain during urination, urgency, headache; and left lower back pain Brlufyu-Rxqci-Vtr Reported By: Patient HPI: Duration: constant; rhinorrhea, SINGH, chills, fever, body aches since last night and left lower back pain and urinary urgency x 2 days. Severity: subjective temperature. Context: no ill contacts, no tick/insect bites, no recent travel, no new medications. Associated Symptoms: no muscle aches, no rash, no lethargy, fever/chills, headache, nasal discharge; body aches, left lower back pain and urinary urgency. Modifying Factors nothing gives relief Review of Systems:ROS as noted in the HPI Review of Systems Basic Reported By: Patient Physical Exam Adult Basic, Adult Female Complete Reported By: Patient Constitutional: General Appearance: obese. Level of Distress: NAD. Ambulation: ambulating normally Psychiatric: Mental Status: active and alert. Orientation: to time, to place, to person Eyes: Lids and Conjunctivae: non-injected, no pallor; no periorbital edema Mdp-Dcmo-Zfhzm-Throat: Ears: no lesions on external ear, no outer ear tenderness, EACs clear, TMs clear. Nose: no lesions on external nose, nares patent, no septal deviation, nasal passages clear, no sinus tenderness, nasal d ischarge--rhinorrhea. Lips, Teeth, and Gums: no mouth or lip ulcers, no bleeding gums, normal dentition. Oropharynx: moist mucous membranes, no erythema, no exudates, tonsils not enlarged Neck: Neck: supple. Lymph Nodes: no cervical LAD Lungs: Respiratory effort: no dyspnea, no tachypnea, no use of accessory muscles, no intercostal retractions. Auscultation: breath sounds normal Cardiovascular: Heart Auscultation: RRR, no murmurs Musculoskeletal:: Extremities: no edema Neurologic: Gait and Station: normal gait, normal station Abdomen: Bowel Sounds: normal. Inspection and Palpation: soft, non-distended, no guarding, no rebound tenderness, no masses, no CVA tenderness, suprapubic tenderness. Hernia: none palpable
--- OUTSIDE RECORDS SUMMARY | 2019-02-14 20:32 | XMS REPORT | Encounter Summary ---
Author Organization Unknown Address [address] [place] [address] Phone [phone] Reason for Visit Medical Complaint Instructions 1. Influenza-like illness rapid flu (A+B) Tamiflu 75 mg capsule benzonatate 200 mg capsule viral infections: care instructions 2. Nausea and vomiting nausea and vomiting: care instructions ondansetron 8 mg disintegrating tablet 3. Body mass index 30+ - obesity body mass index: care instructions learning about healthy weight 4. Elevated blood pressure elevated blood pressure: care instructions dash diet: care instructions blood pressure monitoring education Discussion Note: None recorded. Plan of Care Patient Instructions You don't feel well, but it's not clear what's causing it. You may have a viral infection. Viruses cause many illnesses, such as the common cold, influenza, fever, rashes, and the diarrhea, nausea, and vomiting that are often called "stomach flu." You may wonder if antibiotic medicines could make you feel better. But antibiotics only treat infections caused by bacteria. They don't work on viruses. The good news is that viral infections usually aren't serious. Most will go away in a few days without medical treatment. In the meantime, there are a few things you can do to make yourself more comfortable. Follow-up care is a markham part of your treatment and safety. Be sure to make and go to all appointments, and call your doctor if you are having problems. It's also a good idea to know your test results and keep a list of the medicines you take. How can you care for yourself at home? Get plenty of rest if you feel tired. Take an hhxm-nhf-tylastd pain medicine if needed, such as acetaminophen (Tylenol), ibuprofen (Advil, Motrin), or naproxen (Aleve). Read and follow all instructions on the label. Be careful when taking iqgr-giw-hklwfon cold or flu medicines and Tylenol at the same time. Many of these medicines have acetaminophen, which is Tylenol. Read the labels to make sure that you are not taking more than the recommended dose. Too much acetaminophen (Tylenol) can be harmful. Drink plenty of fluids, enough so that your urine is light yellow or clear like water. If you have kidney, heart, or liver disease and have to limit fluids, talk with your doctor before you increase the amount of fluids you drink. Stay home from work, school, and other public places while you have a fever. When should you call for help? Call 911 anytime you think you may need emergency care. For example, call if: You have severe trouble breathing. You passed out (lost consciousness). Call your doctor now or seek immediate medical care if: You seem to be getting much sicker. You have a new or higher fever. You have blood in your stools. You have new belly pain, or your pain gets worse. You have a new rash. Watch closely for changes in your health, and be sure to contact your doctor if: You start to get better and then get worse. You do not get better as expected. Reminders Provider Appointments None recorded. Lab Rapid Flu (A+B) 11/06/2018 [facility] Referral None recorded. Procedures None recorded. Surgeries None recorded. Imaging None recorded. Medications Name Start Date benzonatate 200 mg capsule Take 1 capsule 3 times a day by oral route as needed for cough for 10 days. ondansetron [address] 1 tablet every 8 hours by translingual route for 2 days. Tamiflu 75 mg capsule Take 1 capsule twice a day by oral route for 5 days. Medications Administered None recorded. Vitals Height Weight BMI Blood Pressure 5 ft 6 in 194 lbs 31.3 kg/m2 120/74 mm[Hg] Lab Results Date Name Specimen Result Interpretation Description Value Range Status Address Rapid Flu (A+B) Influenza a negative [facility]: [address] [place] [address] Influenza B negative [facility]: [address] [place] [address] Allergies Code Code System Name Reaction Severity [...] History Smoking Status Never Smoker Past Encounters 11/06/2018 Influenza-like Illness; Nausea and Vomiting; Body Mass Index 30+ - Obesity; Elevated Blood Pressure Jeri Martin [facility]: [address] [place] [address], Ph. History of Present Illness Djrjtnv-Mqqpi-Onl Reported By: Patient HPI: Duration: 1 days. Severity: highest temperature 101. Context: no tick/insect bites, no recent travel, no new medications, ill contacts. Associated Symptoms: no rash, no lethargy, fever/chills, headache, muscle aches, tired (fatigue) Note:53 YO female with fever, chills, vomiting, body aches, abdominal pain x 24 hours Review of Systems:ROS as noted in the HPI Review of Systems Basic Reported By: Patient Notes: 53 YO female with fever, chills, vomiting, body aches, abdominal pain x 24 hours Physical Exam Adult Basic, Adult Female Complete Reported By: Patient Constitutional: General Appearance: obese. Level of Distress: NAD. Ambulation: ambulating normally Psychiatric: Mental Status: active and alert. Orientation: to time, to place, to person Dnl-Izgb-Xkhnu-Throat: Ears: no lesions on external ear, no outer ear tenderness, EACs clear, TMs clear. Hearing: no hearing loss. Nose: no lesions on external nose, nares patent, no septal deviation, nasal passages clear, no sinus tenderness, no nasal discharge. Lips, Teeth, and Gums: no mouth or lip ulcers, no bleeding gums, normal dentition. Oropharynx: moist mucous membranes, no erythema, no exudates, tonsils not enlarged Lungs: Respiratory effort: no dyspnea, no tachypnea, no use of accessory muscles, no intercostal retractions. Auscultation: breath sounds normal Cardiovascular: Heart Auscultation: RRR, no murmurs Notes: 53 YO female with fever, chills, vomiting, body aches, abdominal pain x 24 hours
--- OUTSIDE RECORDS SUMMARY | 2019-02-14 20:33 | XMS REPORT | Encounter Summary ---
Author Organization Unknown Address [address] [place] [address] Phone [phone] Reason for Visit Medical Complaint; headache, sore throat, chills, fever, sinus pressure x 4 days Instructions 1. Acute sinusitis Zithromax Z-Kendall 250 mg tablet rapid flu (A+B) 2. Allergic rhinitis Xyzal 5 mg tablet 3. Eustachian tube disorder fluticasone 50 mcg/actuation nasal spray,suspension 4. Acute pharyngitis rapid strep group A, throat Discussion Note: None recorded. Patient educational handouts: No information available. Plan of Care Patient Instructions Take antibiotic as prescribed. Handwashing. Increase fluid intake and plenty of rest. May take tynenol/motrin for pain. may use cloraseptic throat spray for sore throat. If no improvement in 3 days, or worsening of symptoms, see primary care physician or call clinic. Reminders Provider Appointments None recorded. Lab Rapid Flu (A+B) 05/16/2016 [facility] Rapid Strep Group a, Throat 05/16/2016 [facility] Referral None recorded. Procedures None recorded. Surgeries None recorded. Imaging None recorded. Medications Name Start Date fluticasone 50 mcg/actuation nasal spray,suspension Inhale 2 sprays every day by intranasal route at bedtime for 7 days. Xyzal 5 mg tablet Take 1 tablet every day by oral route at bedtime for allergies. Zithromax Z-Kendall 250 mg tablet TAKE 2 TABLETS (500 MG) BY ORAL ROUTE ONCE DAILY FOR 1 DAY THEN 1 TABLET (250 MG) BY ORAL ROUTE ONCE DAILY FOR 4 DAYS Medications Administered None recorded. Vitals Height Weight BMI Blood Pressure 5 ft 5 in 180 lbs 30 123/85 Lab Results Date Name Result Description Value Range Status Rapid Flu (A+B) Influenza a negative Influenza B negative Rapid Strep Group a, Throat Result negative Swab Location Left and Right tonsillar pillars Allergies Name Reaction Severity Onset Codeine Vomiting Moderate Problems Name Status Onset Date Source Eustachian Tube Disorder Active Encounter Acute Sinusitis Active Encounter Acute Pharyngitis Active Encounter Sore Throat Symptom Active Encounter Allergic Rhinitis Active Encounter Urinary Tract Infectious Disease Active Encounter Dizziness Active Encounter Cough Active Encounter Procedures None recorded. Vaccine List Vaccine Type influenza, seasonal, injectable 05/05/2015 Social History Smoking Status Never Smoker Past Encounters 05/16/2016 Acute Sinusitis; Allergic Rhinitis; Eustachian Tube Disorder; Acute Pharyngitis Cherelle Hooks, BILLING AND INSURANCE COORDINATOR: [address] [place] [address], Ph. History of Present Illness Throat-Oral Complaint Reported By: Patient HPI: Location: throat. Quality: sore throat, productive cough, congested, feels 50 percent of normal; rhinorrhea. Severity: moderate. Duration: 4 days. Onset/Timing: gradual. Context: no sick contacts, no foreign travel, non-smoker. Modifying factors: OTC medication. Associated Symptoms: no shortness of breath, no wheezing, no change in number of pillows needed to sleep at night, no sweats, no significant weight gain, no significant weight loss, no morning cough, no vomiting, no diarrhea, no rash, no nausea, green sputum, sore throat Review of Systems Basic Reported By: Patient Constitutional: Constitutional: no fever Eyes: Eyes: no eye complaints Eimv-Hkuz-Adxwx-Throat: Ears: ear pain. Nose: nose/sinus problems. Mouth/Throat: no bleeding gums, no mouth complaints, no teeth problems, sore throat Cardiovascular: Cardiovascular: no chest pain, no shortness of breath, no known heart murmur Respiratory: Respiratory: no wheezing, no shortness of breath, cough Gastrointestinal: Gastrointestinal: no abdominal pain, no vomiting / diarrhea Genitourinary: Genitourinary: no urinary complaints, no discharge Musculoskeletal: Musculoskeletal: no muscle aches, no muscle weakness, no arthralgias/joint pain, no back pain Skin: Skin: no abnormal / changing mole, no jaundice, no rashes Neurologic: Neurologic: no loss of consciousness, no weakness, no numbness, no seizures, no dizziness, no headaches Physical Exam Adult Basic, Adult Female Complete Constitutional: General Appearance: healthy-appearing, well-nourished, well-developed. Level of Distress: NAD. Ambulation: ambulating normally Psychiatric: Mental Status: active and alert. Orientation: to time, to place, to person Eyes: Lids and Conjunctivae: non-injected, no discharge, no pallor. Pupils: PERRLA. Corneas: grossly intact. EOM: EOMI. Lens: clear. Sclerae: non-icteric. Vision: acuity grossly intact Tcy-Iklq-Fyovv-Throat: Ears: no lesions on external ear, no outer ear tenderness, EACs clear, TMs clear, middle ear fluid. Hearing: no hearing loss. Nose: no lesions on external nose, nares patent, no septal deviation, nasal passages clear, sinus tenderness, nasal discharge--purulent, post nasal drip. Lips, Teeth, and Gums: no mouth or lip ulcers, no bleeding gums, normal dentition. Oropharynx: moist mucous membranes, no exudates, tonsils not enlarged, erythema Neck: Neck: supple, trachea midline, no masses, FROM. Lymph Nodes: no supraclavicular LAD, anterior cervical LAD. Thyroid: no enlargement, non-tender, no nodules Lungs: Respiratory effort: no dyspnea, no tachypnea, no use of accessory muscles, no intercostal retractions. Auscultation: breath sounds normal Cardiovascular: Heart Auscultation: RRR, no murmurs. Neck vessels: no carotid bruits
--- OUTSIDE RECORDS SUMMARY | 2019-02-14 20:33 | XMS REPORT | Encounter Summary ---
Author Organization Unknown Address [address] [place] [address] Phone [phone] Reason for Visit Medical Complaint; cough, ear pain. sore throat, drainage x 2 days Instructions 1. Cough Medrol (Kendall) 4 mg tablets in a dose pack benzonatate 200 mg capsule 2. Sore throat symptom rapid strep group A, throat 3. Allergic rhinitis Discussion Note: None recorded. Patient educational handouts: No information available. Plan of Care Patient Instructions Start on Flonase and zyrtec daily x 7 days along with prescribed medications. If symptoms not improve in 3-4days with purulent productive cough with fever, call clinic or see pcp. Reminders Provider Appointments None recorded. Lab Rapid Strep Group a, Throat 03/31/2016 [facility] Referral None recorded. Procedures None recorded. Surgeries None recorded. Imaging None recorded. Medications Name Start Date benzonatate 200 mg capsule Take 1 capsule 3 times a day by oral route as needed for cough. Medrol (Kendall) 4 mg tablets in a dose pack Take as directed on package. Medications Administered None recorded. Vitals Height Weight BMI Blood Pressure 5 ft 5 in 179 lbs 29.8 122/80 Lab Results Date Name Result Description Value Range Status 03/15/2016 Culture, Urine Result 1 no growth Final Urine Culture, Routine final report Final Urinalysis, Dipstick Color : Yellow Clarity : Clear Leukocytes : Small Nitrites : Negative Urobilinogen : Normal Protein : Trace Ph : 5.5 Blood : Negative Specific [place] : 1.020 Ketones : Negative Bilirubin : Negative Glucose 250 (+) Glucose, Fingerstick, Blood Results 116 Rapid Strep Group a, Throat Result negative Swab Location Left and Right tonsillar pillars Allergies Name Reaction Severity Onset Codeine Vomiting Moderate Problems Name Status Onset Date Source Acute Sinusitis Active Encounter Acute Pharyngitis Active Encounter Sore Throat Symptom Active Encounter Allergic Rhinitis Active Encounter Urinary Tract Infectious Disease Active Encounter Dizziness Active Encounter Cough Active Encounter Procedures None recorded. Vaccine List Vaccine Type influenza, seasonal, injectable 05/05/2015 Social History Smoking Status Never Smoker Past Encounters 03/31/2016 Cough; Sore Throat Symptom; Allergic Rhinitis Cherelle Hooks, BEHAVIORAL CONSULTANT: [address] [place] [address], Ph. 03/15/2016 Urinary Tract Infectious Disease; Allergic Rhinitis; Dizziness Ce Ulrich, BEHAVIORAL CONSULTANT: [address] [facility], [place] [address], Ph. History of Present Illness Cough Reported By: Patient HPI: Location: chest, nasal/sinus. Quality: sore throat, dry cough, feels 50 percent of normal. Duration: 2 days. Severity: moderate. Onset/Timing: gradual. Context: no sick contacts, no foreign travel, non-smoker, allergies. Modifying factors: OTC medication. Associated Symptoms: no sputum production, no shortness of breath, no wheezing, no sweats, no significant weight gain, no significant weight loss, no morning cough, no vomiting, no diarrhea, no rash, no nausea, sore throat Review of Systems Basic Reported By: Patient Constitutional: Constitutional: no fever Eyes: Eyes: no eye complaints Jcqo-Wxxk-Yxmbq-Throat: Ears: no ear complaints. Nose: nose/sinus problems. Mouth/Throat: no bleeding gums, [...] clear. Sclerae: non-icteric. Vision: acuity grossly intact Aky-Aykk-Udfkj-Throat: Ears: no lesions on external ear, no outer ear tenderness, EACs clear, TMs clear, middle ear fluid. Hearing: no hearing loss. Nose: no lesions on external nose, nares patent, no septal deviation, nasal passages clear, no sinus tenderness, post nasal drip; nasal turbinate hypertrophic. Lips, Teeth, and Gums: no mouth or lip ulcers, no bleeding gums, normal dentition. Oropharynx: moist mucous membranes, no erythema, no exudates, tonsils not enlarged Neck: Neck: supple, trachea midline, no masses, FROM. Lymph Nodes: no cervical LAD, no supraclavicular LAD. Thyroid: no enlargement, non-tender, no nodules Lungs: Respiratory effort: no dyspnea, no tachypnea, no use of accessory muscles, no intercostal retractions. Auscultation: breath sounds normal Cardiovascular: Heart Auscultation: RRR, no murmurs. Neck vessels: no carotid bruits
--- OUTSIDE RECORDS SUMMARY | 2019-02-14 20:33 | XMS REPORT | Encounter Summary ---
Author Organization Unknown Address [address] [place] [address] Phone [phone] Reason for Visit Medical Complaint Instructions 1. Urinary tract infectious disease urinary tract infection in women: care instructions culture, urine urinalysis, dipstick Macrobid 100 mg capsule 2. Allergic rhinitis allergies: care instructions Xyzal 5 mg tablet fluticasone 50 mcg/actuation nasal spray,suspension 3. Dizziness glucose, fingerstick, blood dizziness: care instructions Discussion Note: None recorded. Plan of Care Patient Instructions Please drink plenty of water and cranberry juice, complete antibiotic course even after symptoms resolve. Please go to ER/UC/PCP if symptoms get worse or no improvement in 3 to 4 days. Patient verbalizes understanding and agrees to plan. Please go to PCP/UC/ER for further testing, evaluation and management of dizziness and abnormal urine glucose level. Patient verbalizes understanding and agrees to the plan. Reminders Provider Appointments None recorded. Lab Culture, Urine 03/15/2016 [facility] Urinalysis, Dipstick 03/15/2016 [facility] Glucose, Fingerstick, Blood 03/15/2016 [facility] Referral None recorded. Procedures None recorded. Surgeries None recorded. Imaging None recorded. Medications Name Start Date amoxicillin 875 mg-potassium clavulanate 125 mg tablet Take 1 tablet(s) every 12 hours by oral route as directed for 7 days. azithromycin 250 mg tablet azithromycin 500 mg tablet benzonatate 200 mg capsule Take 1 capsule(s) 3 times a day by oral route as needed for 10 days. fluticasone 50 mcg/actuation nasal spray,suspension Inhale 2 sprays into each nostril EVERY DAY hydrocodone 7.5 mg-acetaminophen 325 mg/15 mL oral solution Levemir Flexpen 100 unit/mL (3 mL) solution subcutaneous insulin pen levofloxacin 500 mg tablet Macrobid 100 mg capsule Take 1 capsule(s) every 12 hours by oral route with meals for 7 days. mupirocin 2 % topical cream ProAir HFA 90 mcg/actuation aerosol inhaler promethazine-DM 6.25 mg-15 mg/5 mL syrup Take 5 mL every 6 hours by oral route as needed for 5 days. tizanidine 4 mg tablet valacyclovir 500 mg tablet Victoza 3-Kendall 0.6 mg/0.1 mL (18 mg/3 mL) subcutaneous pen injector Xyzal 5 mg tablet Take 1 tablet(s) every day by oral route for 30 days. Medications Administered None recorded. Vitals Height Weight BMI Blood Pressure 5 ft 6 in 178 lbs 28.7 130/80 Lab Results Date Name Result Description Value Range Status Urinalysis, Dipstick Color : Yellow Clarity : Clear Leukocytes : Small Nitrites : Negative Urobilinogen : Normal Protein : Trace Ph : 5.5 Blood : Negative Specific [place] : 1.020 Ketones : Negative Bilirubin : Negative Glucose 250 (+) Glucose, Fingerstick, Blood Results 116 Allergies Name Reaction Severity Onset Codeine Vomiting Moderate Problems Name Status Onset Date Source Acute Sinusitis Active Encounter Acute Pharyngitis Active Encounter Allergic Rhinitis Active Encounter Urinary Tract Infectious Disease Active Encounter Dizziness Active Encounter Procedures None recorded. Vaccine List Vaccine Type influenza, seasonal, injectable 05/05/2015 Social History Smoking Status Never Smoker Past Encounters 03/15/2016 Urinary Tract Infectious Disease; Allergic Rhinitis; Dizziness Ce Serg, [facility]: [address] [place] [address], Ph. History of Present Illness Coejc-Puqdfzenzx-Evwunfp Reported By: Patient HPI: Location: head/sinuses. Quality: colored phlegm, nasal/sinus congestion. Duration: 5days. Severity: moderate. Onset/Timing: gradual. Context: no sick contacts, no foreign travel, non-smoker, allergies. Modifying factors: OTC medication. Associated Symptoms: no shortness of breath, no wheezing, no change in number of pillows needed to sleep at night, no sweats, no significant weight gain, no significant weight loss, no morning cough, no sore throat, no vomiting, no diarrhea, no rash, no nausea, yellow sputum Notes: Pt aslo reports dizziness in the morning and bilateral ear pressure. Review of Systems Basic Reported By: Patient Constitutional: Constitutional: no fever Eyes: Eyes: no eye complaints Kyfd-Jwls-Leqqt-Throat: Ears: ear pain. Nose: nose/sinus problems. Mouth/Throat: no sore throat, no bleeding gums, no mouth complaints, no teeth problems Cardiovascular: Cardiovascular: no chest pain, no shortness of breath, no known heart murmur Respiratory: Respiratory: no cough, no wheezing, no shortness of breath Gastrointestinal: Gastrointestinal: no abdominal pain, no vomiting / diarrhea Genitourinary: Genitourinary: no urinary complaints, no discharge Musculoskeletal: Musculoskeletal: no muscle aches, no muscle weakness, no arthralgias/joint pain, no back pain Skin: Skin: no abnormal / changing mole, no jaundice, no rashes Neurologic: Neurologic: no loss of consciousness, no weakness, no numbness, no seizures, no headaches, dizziness Physical Exam Adult Basic, Adult Female Complete Constitutional: General Appearance: healthy-appearing, well-nourished, well-developed. Level of Distress: NAD. Ambulation: ambulating normally Psychiatric: Mental Status: active and alert. Orientation: to time, to place, to person Eyes: Lids and Conjunctivae: non-injected, no discharge, no pallor. Pupils: PERRLA. EOM: EOMI. Lens: clear. Sclerae: non-icteric Grt-Grjv-Piazc-Throat: Ears: no lesions on external ear, no outer ear tenderness, EACs clear, TMs clear, middle ear fluid. Hearing: no hearing loss. Nose: no lesions on external nose, nares patent, no septal deviation, nasal passages clear, no sinus tenderness, nasal discharge--rhinorrhea, post nasal drip. Lips, Teeth, and Gums: no mouth or lip ulcers. Oropharynx: moist mucous membranes, no erythema, no exudates, tonsils not enlarged Neck: Neck: supple. Lymph Nodes: no cervical LAD Lungs: Respiratory effort: no dyspnea, no tachypnea. Auscultation: breath sounds normal Cardiovascular: Heart Auscultation: RRR, no murmurs Musculoskeletal:: Motor Strength and Tone: normal motor strength, normal tone Neurologic: Gait and Station: normal gait, normal station. Cranial Nerves: grossly intact. Sensation: grossly intact. Reflexes: DTRs 2+ bilaterally throughout. Coordination and Cerebellum: nklrdn-su-pwrz intact, no tremor
--- OUTSIDE RECORDS SUMMARY | 2019-02-14 20:33 | XMS REPORT | Encounter Summary ---
Author Organization Unknown Address [address] [place] [address] Phone [phone] Reason for Visit Medical Complaint Instructions 1. Infection of toe Bactrim DS 800 mg-160 mg tablet 2. Callosity on toe 3. Onychomycosis Discussion Note: None recorded. Patient educational handouts: No information available. Plan of Care Patient Instructions Ok to soak with epsum salt and warm water. Follow up with podiatry for callus removal and toe nails fungal infection x 2 yrs. Reminders Provider Appointments None recorded. Lab None recorded. Referral None recorded. Procedures None recorded. Surgeries None recorded. Imaging None recorded. Medications Name Start Date Bactrim DS 800 mg-160 mg tablet Take 1 tablet every 12 hours by oral route as directed for 10 days. Medications Administered None recorded. Vitals Height Weight BMI Blood Pressure 5 ft 6 in 192 lbs 31 122/74 Lab Results None recorded. Allergies Name Reaction Severity Onset Codeine Vomiting [...] History Smoking Status Never Smoker Past Encounters 07/21/2016 Infection of Toe; Callosity on Toe; Onychomycosis Cherelle Hooks, COIL SHAPER: [address] [place] [address], Ph. History of Present Illness Zdcl-Tjugczw-Xanxo-Skin Lesion-Bite 1 Reported By: Patient HPI: Location: ; left 5th toe. Quality: single. Severity: worsening. Duration: has noted for 1-2 weeks. Onset/Timing: gradual onset. Context: no new detergents or skin products, no one else with similar rash, no sting or bite. Aggravating factors: nothing makes it worse. Alleviating factors: nothing gives relief. Associated Symptoms: no fever/chills, no muscle aches, no headache, no cold symptoms, no nausea, no vomiting, no diarrhea, no urinary symptoms Review of Systems Basic Reported By: Patient Constitutional: Constitutional: no fever Eyes: Eyes: no eye complaints Puxf-Lehj-Xncqu-Throat: Ears: no ear complaints. Nose: no nose/sinus problems. Mouth/Throat: no sore throat, no [...] arthralgias/joint pain, no back pain Skin: Skin: ; toe infection Neurologic: Neurologic: no loss of consciousness, no weakness, no numbness, no seizures, no dizziness, no headaches Physical Exam Adult Basic, Adult Female Complete Constitutional: General Appearance: healthy-appearing, well-nourished, well-developed. Level of Distress: NAD. Ambulation: ambulating normally Psychiatric: Mental Status: active and alert. Orientation: to time, to place, to person Skin: Inspection and palpation: ; Left 5th toe with callus, area edematous, tender and warm to touch. Nails: abnormal
--- OUTSIDE RECORDS SUMMARY | 2019-02-14 20:34 | XMS REPORT | Encounter Summary ---
Author Organization Unknown Address [address] [place] [address] Phone [phone] Reason for Visit Medical Complaint Instructions 1. Cellulitis of hand mupirocin 2 % topical ointment Bactrim DS 800 mg-160 mg tablet call back Discussion Note Pt is in NAD; Verbalizes understanding of all instructions with no questions at this time. Plan of Care Patient Instructions Alternate with Ibuprofen and acetaminophen every 4hrs as needed for pain/swelling Proper hydration and rest Keep area clean and dry. Clean with soap and water twice a day, pat dry and apply antibiotic ointment as directed. Take medications as prescribed. Return to clinic or follow up with your PCP within 2-3 days if symptoms worsen as discussed. In case of emergency: shortness of breath, difficulty breathing, excrutiating pain, worsening swelling of your hand or purple/blue discoloration call 911 or go to nearest ER. Reminders Provider Appointments None recorded. Lab None recorded. Referral None recorded. Procedures None recorded. Surgeries None recorded. Imaging None recorded. Medications Name Start Date Bactrim DS 800 mg-160 mg tablet Take 1 tablet every 12 hours by oral route as directed for 10 days. mupirocin 2 % topical ointment APPLY A SMALL AMOUNT TO THE AFFECTED AREA BY TOPICAL ROUTE 3 TIMES PER DAY Medications Administered None recorded. Vitals Height Weight BMI Blood Pressure 5 ft 6 in 198 lbs 32 134/82 Lab Results None recorded. Allergies Code Code System Name Reaction Severity Onset 8070 RxNorm Codeine Vomiting Moderate Problems Name Status [...] History Smoking Status Never Smoker Past Encounters 11/12/2016 Cellulitis of Hand Patricia Fleming, SUPERVISOR [employer]: [address] [facility], [place] [address], Ph. History of Present Illness Ypnh-Kjmcsev-Fjdvr-Skin Lesion-Bite 1 Reported By: Patient HPI: Location: hands. Quality: not itchy, painful, tender, red, localized, swollen, related to trauma. Severity: moderate. Duration: ; since yesterday. Onset/Timing: gradual onset. Context: no new detergents or skin products, no one else with similar rash, bite/sting exposure. Aggravating factors: ; movement and touch. Alleviating factors: nothing gives relief. Associated Symptoms: no fever/chills, no muscle aches, no headache, no cold symptoms, no nausea, no vomiting, no diarrhea, no urinary symptoms Review of Systems:ROS as noted in the HPI Review of Systems Basic Reported By: Patient Physical Exam Adult Basic, 14-21 Yr Male, Adult Female Complete, Adult Male Complete Reported By: Patient Constitutional: General Appearance: healthy-appearing, well-nourished, well-developed. Level of Distress: NAD. Ambulation: ambulating normally Psychiatric: Mental Status: active and alert, normal affect, normal mood. Orientation: to time, to place, to person Eyes: Lids and Conjunctivae: non-injected, no discharge. Lens: clear. Sclerae: non-icteric Neck: Neck: supple, trachea midline, no masses, FROM. Lymph Nodes: no cervical LAD, no axillary LAD, no inguinal LAD Lungs: Respiratory effort: no dyspnea, no tachypnea, no use of accessory muscles, no intercostal retractions. Auscultation: breath sounds normal, clear to auscultation, no wheezing, no rales/crackles, no rhonchi, no retractions, good air movement Cardiovascular: Heart Auscultation: RRR, no murmurs, no gallops, no rub, normal femoral pulse. Rate and rhythm: regular. Pulses including femoral / pedal: normal throughout Musculoskeletal:: Motor Strength and Tone: normal motor strength, normal tone, normal. Joints, Bones, and Muscles: normal movement of all extremities, no bony abnormalities, no contractures, no malalignment, tenderness. Extremities: no cyanosis, no varicosities, no palpable cord, edema Neurologic: Gait and Station: normal gait, normal station Skin: Inspection and palpation: no rash, no ulcer, no abnormal nevi, no induration, no nodules, good turgor, no jaundice, lesion
[2019-02-14 21:51] LABS: BILIRUBIN,URINE NEGATIVE (NEGATIVE); CLARITY,URINE CLEAR (CLEAR); COLOR,URINE YELLOW (YELLOW); KETONES,URINE NEGATIVE (NEGATIVE); LEUKOCYTE ESTERASE ,URINE SMALL (NEGATIVE); NITRITE,URINE POSITIVE (NEGATIVE); PROTEIN,URINE DIPSTICK NEGATIVE (NEGATIVE); URINE UROBILINOGEN 0.2 mg/dL (0.2 - 1)
[2019-02-14 22:04] LABS: BACTERIA,URINE MANY /HPF; EPITHELIAL CELLS,URINE MODERATE /LPF; WBC,URINE (MAN) 21-50 /HPF (0-5)
[2019-02-14] MEDS ORDERED: MACROBID 100 M100 MG PO (23:24)
[2019-02-14] MEDS ORDERED: PYRIDIUM100 MG PO (23:24)
--- NOTE | 2019-02-14 23:35 | NUR ---
PT STATES SHE IS LEAVING, STATES SHE IT TIRED OF WAITING. REASSURANCE GIVEN, ADVISED ERP IS WORKING ON HER CHART AND WILL BE IN ROOM SOON
[2019-02-14] MEDS ORDERED: SODIUM CHLORIDE 0.9% 1000ML 1,000 ML ONE (23:36)
--- NOTE | 2019-02-14 23:42 | NUR ---
DR STAFFORD STARTED IV RACF. 1L NS BOLUS
[2019-02-15] MEDS ORDERED: CEFTRIAXONE SOD 1 GM/NS 50 ML 50 ML IV ONE
[2019-02-15] MEDS ORDERED: SODIUM CHLORIDE 0.9% 1000ML 1,000 ML IV SCH
[2019-02-15] MEDS ORDERED: SODIUM CHLORIDE 0.9% 1000ML 1,000 ML IV STA
--- NOTE | 2019-02-15 | NUR ---
pt states her left ear is bothering her and wants ERP to look in her ear. Dr Ruano aware
[2019-02-15 00:35] LABS: BASOPHILS # (AUTO) 0.1 (0.0-0.1); BASOPHILS % 0.6 % (0.0-1.0); EOSINOPHILS # (AUTO) 0.2 (0.0-0.4); EOSINOPHILS % 2.8 % (0.0-6.0); HEMATOCRIT 38.2 % (34.2-44.1); HEMOGLOBIN 12.6 g/dL (12.0-16.0); LYMPHOCYTES # (AUTO) 3.7 (1.0-3.2); LYMPHOCYTES % 46.9 % (18.0-39.1); MEAN CORPUSCULAR HEMOGLOBIN 30.1 pg (28-32); MEAN CORPUSCULAR VOLUME 91.4 fL (81-99); MONOCYTES # (AUTO) 0.7 (0.2-0.8); MONOCYTES % 9.4 % (4.4-11.3); NEUTROPHILS # (AUTO) 3.1 (2.1-6.9); PLATELET COUNT 288 x10e3/uL (140-360); RED BLOOD COUNT 4.18 x10e6/uL (3.6-5.1); RED CELL DISTRIBUTION WIDTH 12.4 % (11.7-14.4)
[2019-02-15 00:48] LABS: ALANINE AMINOTRANSFERASE 43 IU/L (0-55); ALBUMIN 3.8 g/dL (3.5-5.0); ALBUMIN/GLOBULIN RATIO 1.2 (0.8-2.0); ALKALINE PHOSPHATASE 105 IU/L (40-150); ANION GAP 12.7 mmol/L (8-16); BLOOD UREA NITROGEN 20 mg/dL (7-26); BUN/CREATININE RATIO 27 (6-25); CALCIUM 9.3 mg/dL (8.4-10.2); CARBON DIOXIDE 24 mmol/L (22-29); CHLORIDE 110 mmol/L (98-107); CREATININE, SERUM 0.75 mg/dL (0.57-1.11); EST GLOMERULAR FILTRATION RATE > 60 ML/MIN (60-); GLUCOSE 132 mg/dL (74-118); POTASSIUM 3.7 mmol/L (3.5-5.1); SODIUM 143 mmol/L (136-145)
--- NOTE | 2019-02-15 01:03 | NUR ---
PT REQUESTING ADDITIONAL BLANKET, TEMP 97.7 ADDITIONAL BLANKET GIVEN
== END 2019-02-15 01:25 | disposition home or self-care (01) ==
LOC: ER 20:27
DX: R30.0 Dysuria (principal); N30.91 Cystitis, unspecified with hematuria
CPT/HCPCS: 36415; 80053; 81001; 85025; 99283; J0696; J7030

== ENCOUNTER 2019-06-11 15:30 | Inpatient (IN) | payer OTHER ==
[~2019-06-11] VITALS: Ht 167.6 cm; Wt 78.9 kg
[~2019-06-11 15:30] MED LIST: MACROBID 100 M100 MG PO; PYRIDIUM100 MG PO
[2019-06-11 16:07] LABS: BASOPHILS % 0.3 % (0.0-1.0); EOSINOPHILS % 0.3 % (0.0-6.0); HEMOGLOBIN 14.7 g/dL (12.0-16.0); LYMPHOCYTES # (AUTO) 2.4 (1.0-3.2); LYMPHOCYTES % 23.1 % (18.0-39.1); MEAN CORPUSCULAR HEMOGLOBIN 30.2 pg (28-32); MEAN CORPUSCULAR HGB CONC 33.4 g/dL (31-35); MEAN CORPUSCULAR VOLUME 90.3 fL (81-99); MONOCYTES # (AUTO) 0.6 (0.2-0.8); MONOCYTES % 5.6 % (4.4-11.3); NEUTROPHILS # (AUTO) 7.3 (2.1-6.9); NEUTROPHILS % 70.4 % (38.7-80.0); PLATELET COUNT 311 x10e3/uL (140-360); RED BLOOD COUNT 4.87 x10e6/uL (3.6-5.1); RED CELL DISTRIBUTION WIDTH 11.9 % (11.7-14.4)
[2019-06-11 16:09] LABS: BILIRUBIN,URINE NEGATIVE (NEGATIVE); CLARITY,URINE SL CLOUDY (CLEAR); COLOR,URINE YELLOW (YELLOW); LEUKOCYTE ESTERASE ,URINE NEGATIVE (NEGATIVE); NITRITE,URINE NEGATIVE (NEGATIVE); PROTEIN,URINE DIPSTICK NEGATIVE (NEGATIVE); URINE UROBILINOGEN 0.2 mg/dL (0.2 - 1)
[2019-06-11 16:11] LABS: KETONES,URINE 2+ (NEGATIVE)
[2019-06-11] MEDS ORDERED: ACETAMINOPHEN 325 MG TAB PO ONE (16:15)
[2019-06-11 16:24] LABS: EPITHELIAL CELLS,URINE RARE /LPF
[2019-06-11 16:27] LABS: ALANINE AMINOTRANSFERASE 39 IU/L (0-55); ALBUMIN/GLOBULIN RATIO 1.1 (0.8-2.0); ALKALINE PHOSPHATASE 100 IU/L (40-150); BLOOD UREA NITROGEN 11 mg/dL (7-26); BUN/CREATININE RATIO 14 (6-25); CALCIUM 9.5 mg/dL (8.4-10.2); CARBON DIOXIDE 23 mmol/L (22-29); CHLORIDE 103 mmol/L (98-107); EST GLOMERULAR FILTRATION RATE > 60 ML/MIN (60-); GLUCOSE 194 mg/dL (74-118); SODIUM 136 mmol/L (136-145)
[2019-06-11] MEDS ORDERED: LIDOCAINE HCL 1% LOCAL INJ 20 ML VIAL ONE (18:00)
[2019-06-11] MEDS ORDERED: MORPHINE SULFATE 2 MG/ML SYR 1ML IV NR (18:30)
[2019-06-11 18:44] LABS: APPEARANCE,CSF CLEAR (CLEAR); COLOR,CSF COLORLESS (COLORLESS); TUBE NUMBER 3
[2019-06-11 19:06] LABS: TOTAL PROTEIN,CSF 87.4 mg/dL (15-40)
[2019-06-11 19:12] LABS: WHITE BLOOD CELL,CSF 78 cells/uL (0-5)
[2019-06-11 19:15] LABS: STREPTOCOCCUS GRP A ANTIGEN NEGATIVE (NEGATIVE)
--- NOTE | 2019-06-11 19:22 | Diagnostic Imaging Report ---
EXAMINATION: CHEST SINGLE (PORTABLE) COMPARISON: None INDICATION: Dizziness, headaches, cough ^cough ^[id number] ^1645 DISCUSSION: Frontal view of the chest obtained at 1846 hours. HEART AND MEDIASTINUM: The cardiomediastinal silhouette is unremarkable. LINES: None. LUNGS: Subsegmental atelectasis or developing infiltrate in the right middle lobe. Discoid atelectasis in the left lung base. Pulmonary vascular markings are normal. No interstitial edema. PLEURA: No pleural effusion or pneumothorax. BONES AND SOFT TISSUES: No focal osseous lesion. The soft tissues are normal. IMPRESSION: Right middle lobe atelectasis or infiltrate. Minimal correlation with PA and lateral chest x-ray when clinically feasible. Discoid atelectasis in the left lung base. Signed by: Dr. Chad Lopez MD on 06/11/2019 7:18 PM
[2019-06-11 19:24] LABS: INFLUENZAE A&B ANTIGEN (RAPID) NEGATIVE (NEGATIVE)
[2019-06-11 19:47] LABS: LYMPHOCYTES,CSF 97 % (40-80); MONOCYTES,CSF 3 %
[2019-06-11 19:48] LABS: LEPTOMENINGEAL,CSF 0 %; NEUTROPHILS,CSF 0 % (0-6)
[2019-06-11] MEDS ORDERED: DEXTROSE 50% SYRINGE 50 ML IV PRN (21:00)
[2019-06-11] MEDS ORDERED: METFORMIN HCL500 MG PO (21:07)
--- OUTSIDE RECORDS SUMMARY | 2019-06-11 21:07 | XMS REPORT ---
Author [facility] Address Unknown Phone Unavailable Care Team Providers Care Dragline Operator Name Role Phone CHARU WILLSON Unavailable Unavailable Problems This patient has no known problems. Allergies, Adverse Reactions, Alerts This patient has no known allergies or adverse reactions. Medications This patient has no known medications. Results Test Description Test Time Test Comments Text Results Atomic Results Result Comments CHEST SINGLE (PORTABLE) 2019-06-11 19:17:00 [place] [address] Patient Name: KATHERYN SAMPSON MR #: [id number] : 1965 Age/Sex: 53/F Req #: [id number] [facility] Physician: Ordered by: CHARU WILLSON MD Report #: [id number] Location: ER Room/Bed: Procedure: [id number] DX/CHEST SINGLE (PORTABLE) Exam Date: 06/11/19 Exam Time: 1645 REPORT STATUS: Signed EXAMINATION: CHEST SINGLE (PORTABLE) PAYAL RISON: None INDICATION: Dizziness, headaches, cough cough [id number] DISCUSSION: Frontal view of the chest obtained at 1846 hours. HEART AND MEDIASTINUM: The cardiomediastinal silhouette is unremarkable. LINES: None. LUNGS: Subsegmental atelectasis or developing infiltrate in the right middle lobe. Discoid atelectasis in the left lung base. Pulmonary vascular markings are normal. No interstitial edema. PLEURA: No pleural effusion or pneumothorax. BONES AND SOFT TISSUES: No focal osseous lesion. The soft tissues are normal. IMPRESSION: Right middle lobe atelectasis or infiltrate. Minimal correlation with PA and lateral chest x-ray when clinically feasible. Discoid atelectasis in the left lung base. Signed by: Dr. Zaid Lopez MD on 06/11/2019 7:18 PM Dictated By: ZAID LOPEZ MD 17 Transcribed By: PAVITHRA on 06/11/191917 COPY TO: CHARU WILLSON MD
[2019-06-11] MEDS ORDERED: MORPHINE SULFATE INJ 4 MG/ML INJ 1ML IV PRN (21:15)
[2019-06-11] MEDS: SODIUM CHLORIDE 0.9% 1000ML 1,000 ML IV SCH (21:47)
[2019-06-11] MEDS: ACYCLOVIR SODIUM INJ 800 MG in SODIUM CHLORIDE 0.9% 250ML 250 ML IV SCH (21:47)
[2019-06-11] MEDS: INSULIN REGULAR, HUMAN 100 UNIT/1 ML 3ML VIAL SQ SCH (22:00)
[2019-06-12] MEDS: ACETAMINOPHEN 325 MG TAB PO PRN ×2 (04:03→20:49)
[2019-06-12] MEDS: SODIUM CHLORIDE 0.9% 1000ML 1,000 ML IV SCH ×3 (05:18→18:28)
[2019-06-12] MEDS: ACYCLOVIR SODIUM INJ 800 MG in SODIUM CHLORIDE 0.9% 250ML 250 ML IV SCH ×3 (05:52→21:24)
[2019-06-12 06:17] LABS: BASOPHILS % 0.5 % (0.0-1.0); EOSINOPHILS # (AUTO) 0.1 (0.0-0.4); EOSINOPHILS % 1.5 % (0.0-6.0); HEMATOCRIT 36.4 % (34.2-44.1); HEMOGLOBIN 12.4 g/dL (12.0-16.0); LYMPHOCYTES # (AUTO) 2.8 (1.0-3.2); LYMPHOCYTES % 32.6 % (18.0-39.1); MEAN CORPUSCULAR HEMOGLOBIN 30.5 pg (28-32); MEAN CORPUSCULAR HGB CONC 34.1 g/dL (31-35); MEAN CORPUSCULAR VOLUME 89.7 fL (81-99); MONOCYTES # (AUTO) 0.9 (0.2-0.8); MONOCYTES % 10.6 % (4.4-11.3); NEUTROPHILS # (AUTO) 4.6 (2.1-6.9); NEUTROPHILS % 54.6 % (38.7-80.0); PLATELET COUNT 271 x10e3/uL (140-360); RED BLOOD COUNT 4.06 x10e6/uL (3.6-5.1)
--- NOTE | 2019-06-12 06:31 | NUR ---
H&P CC: headache HPI: 53yoF, PCP ??, developed severe headache on crown of head, with fever 101 at home. Pt went to [facility] initially, but sent home. Pt also had photophobia with some nausea. No travel in past 2 months. With persistence of symptoms, came to ED, LP done which suggested viral meningitis. Isolation initiated and antiviral meds started. PMH: DM2 PSHx: none Allergies; see emr Fh/SH; no illicits; occ etoh meds; see MAR ROS: no vision changes/cp/sob/leg pain/back pain/diarrhea/skin rash v/s revd PE tired appearing anicteric ns1s2 mod bs soft nt nd no e/t awake; oriented x3; Mild nuchal rigidity with contraction of legs and neck (Brudzinski sign) skin dry flat affect labs/meds; revd A/P: 53yoF Viral meningitis Febrile illness DM2 Overweight BMI 28.1 PLAN Supportive care; IV acyclovir; isolation; ID consult hba1c/lipids SCD Javier Saez MD, PhD.
[2019-06-12 06:32] LABS: ALANINE AMINOTRANSFERASE 27 IU/L (0-55); ALBUMIN 3.3 g/dL (3.5-5.0); ALBUMIN/GLOBULIN RATIO 1.1 (0.8-2.0); ALKALINE PHOSPHATASE 78 IU/L (40-150); ANION GAP 10.7 mmol/L (8-16); BLOOD UREA NITROGEN 14 mg/dL (7-26); BUN/CREATININE RATIO 22 (6-25); CALCIUM 8.4 mg/dL (8.4-10.2); CARBON DIOXIDE 23 mmol/L (22-29); CHLORIDE 105 mmol/L (98-107); CREATININE, SERUM 0.64 mg/dL (0.57-1.11); EST GLOMERULAR FILTRATION RATE > 60 ML/MIN (60-); GLUCOSE 148 mg/dL (74-118); POTASSIUM 3.7 mmol/L (3.5-5.1); SODIUM 135 mmol/L (136-145)
[2019-06-12 06:48] LABS: CHOL/HDL RATIO 5.1 (3.0-3.6)
--- NOTE | 2019-06-12 06:55 | NUR ---
Bedside shift report received from JUAN JOSE Wasserman. Pt sitting up in bed. RR even and unlabored. NAD noted. Vitals stable at this time. Pt remains on NIBP and pulse ox. Bed locked in lowest position. Call light in reach.Pt reports headache, neck and back pain, states 9/10. Pt requesting pain medication. Will continue to monitor.
[2019-06-12] MEDS: INSULIN REGULAR, HUMAN 100 UNIT/1 ML 3ML VIAL SQ SCH ×4 (07:45→21:00)
[2019-06-12] MEDS: ONDANSETRON HCL INJ 2MG/ML 2ML 2 MG/ML VIAL IV PRN ×2 (07:45→15:40)
--- NOTE | 2019-06-12 09:15 | NUR ---
Pt requesting IV position change, due to IV being in her AC and constantly bending arm and IV pump constantly beeping. 20G IV placed to Right FA, 18G IV removed from Left AC. Catheter intact, no redness or swelling noted.
[2019-06-12 13:30] VITALS: BP 130/67
--- NOTE | 2019-06-12 13:30 | NUR ---
PATIENT ARRIVED FROM ER TO ROOM 287, SHE IS IN STABLE CONDITION. ORIENTED TO ROOM AND POLICIES. INITIAL PHYSICAL ASSESSMENT AND ADMISSION HISTORY COMPLETED AND DOCUMENTED. CALL LIGHT WITHIN REACH. BED IN THE LOWEST POSITION.
[2019-06-12 13:38] VITALS: BP 130/67
[2019-06-12 13:50] VITALS: BP 130/67
--- NOTE | 2019-06-12 14:12 | NUR ---
DR. JOSE ROUNDING ON PATIENT, PER MD PATIENT DOES NOT NEED TO BE ON ISOLATION. DC ISOLATION PRECAUTIONS.
[2019-06-12] MEDS ORDERED: MORPHINE SULFATE 2 MG/ML SYR 1ML IV PRN (15:15)
[2019-06-12 16:00] VITALS: BP 137/66
[2019-06-12] MEDS: KETOROLAC TROMETHAMINE 30 MG/ML VIAL IV PRN (18:27)
--- NOTE | 2019-06-12 18:50 | NUR ---
BEDSIDE REPORT GIVEN TO ONCOMING NURSE. PATIENT IS RESTING IN BED. NO ACUTE DISTRESS NOTED. DAUGHTER AT BEDSIDE. CALL LIGHT WITHIN REACH.
--- NOTE | 2019-06-12 19:00 | NUR ---
patient received lying quietly in bed. no c/o pain noted. ivf continue to infuse without difficulty. pm assessment complete. daughter noted at the bedside. patient/daughter instructed to call for assistance when needed.
[2019-06-12 19:30] VITALS: BP 156/74
[2019-06-12 20:00] VITALS: BP 156/74
--- NOTE | 2019-06-12 20:49 | NUR ---
patient medicated with tylenol 650mg po for temp 99.7 (o).
--- NOTE | 2019-06-12 21:29 | Consultation ---
DATE OF CONSULTATION: 06/12/2019 REASON FOR CONSULTATION: Evaluate and assist in treating the patient with suspected viral meningitis. Information is gathered from the current medical record. I interviewed the patient at the bedside. HISTORY OF PRESENT ILLNESS: She is a 53-year-old woman with diabetes mellitus, who has had cholecystectomy in the past. She developed a severe frontal headache with a pressure sensation in her head and at back of her neck about three days ago. She took 400 mg of ibuprofen without any relief. [facility], where she was giving a "migraine cocktail" consisting of Benadryl and Toradol, it is not clear whether that other medication given. The patient reports that she had a CT scan without contrast that showed no significant abnormality. She was discharged from [facility]. Her symptoms persisted and appeared to be worse. There was photophobia and nausea. No vomiting or diarrhea. Because of the persistent symptoms, she called her primary physician, who advised that she come to the emergency room here for evaluation. She was noted with a temperature of 100.4 degrees Fahrenheit at presentation, a pulse rate of 84, respiratory rate 20 to 24 and blood pressure 171/87. She had a CBC done that showed a white count of 10.3 with an unremarkable differential. Also, creatinine was 0.8. Liver function tests were unremarkable. A chest x-ray reported right middle lobe atelectasis or infiltrate. No other imaging reports are available. She had a lumbar puncture. The CSF was clear and colorless with 78 WBCs, 97% of which were lymphocytes. CSF glucose was 99. CSF total protein is 7.4. The patient has been started on treatment with acyclovir. MEDICAL HISTORY: As reported above. There is no history of migraines. No one else is ill at home. 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 Prior to the onset of her illness, there has been only one person who came in ill and had on a face mask. She has no history of chronic kidney disease, liver disease. She has a history of fatty liver. No history of myocardial infarction or CVA. SOCIAL HISTORY: She does not smoke. She drinks occasionally. She denies other forms of recreational drug use. FAMILY HISTORY: Noncontributory to her current hospitalization. ALLERGIES: SHE IS ALLERGIC TO CODEINE AND DEMEROL. MEDICATIONS: As reported earlier, she is on treatment with acyclovir. The rest of her medications are per the medication administration report. REVIEW OF SYSTEMS: The patient is alert. Her sensorium is clear. She is complaining of headache. There is some discomfort when she turns her head, but no neck pain per Se. No sore throat. No sneezing, no nausea, vomiting, or diarrhea currently. No frequency or dysuria. No pruritus or rash. PHYSICAL EXAMINATION: GENERAL: On examination, she is an adult woman. She is alert, responsive, coherent. She appears nontoxic and is in no acute distress. VITAL SIGNS: Maximum temperature was at presentation 100.4 degrees Fahrenheit. Most recent temperature 98.6. She is hemodynamically stable. She is somewhat obese. HEENT: She has no gross pallor. No obvious icterus. No oropharyngeal lesions. NECK: Fairly supple. CHEST: Symmetric. LUNGS: Clear. HEART: Sounds are regular without a significant murmur. ABDOMEN: Full, soft, nontender with normal bowel sounds. EXTREMITIES: No acute erythema of lower extremities. NEUROLOGIC: No obvious focal neurologic deficits. LABORATORY DATA: Her white count at presentation 10.3, currently 8.4, hemoglobin 12.4, platelet count 271. Differentials on her white count appear unremarkable. Also, creatinine at present 0.6. Liver function tests unremarkable. Test for influenza A and B on June 11, 2019 was negative. Group B strep screen was negative. CSF culture is reported negative at 24 hours and viral culture is pending. IMPRESSION: This 53-year-old woman is a diabetic. She has findings of an aseptic meningitis, probably viral. She has no history of herpes infection. She is on appropriate treatment with acyclovir. We have ordered HSV PCR. Continue acyclovir on daily HSV PCR. All viral culture reports are available. If these are negative, I would discontinue acyclovir and monitor the patient clinically. There is no indication for isolation at this point. I have discussed the findings and plans of treatment with the patient and her family at the bedside as well as with the nursing staff. I will discuss the patient with Dr. Saez, whom I thank for the consult and opportunity to participate in the patient's care. MD SACHIN Mehta/GEMINI /[id number]
[2019-06-13] VITALS (8 sets, daily range): BP systolic 108–185; BP diastolic 57–86
--- NOTE | 2019-06-13 | NUR ---
patient appears to be resting quietly. no c/o pain noted. vss. ivf continue to infuse without difficulty. daughter remains at the bedside.
[2019-06-13] MEDS: SODIUM CHLORIDE 0.9% 1000ML 1,000 ML IV SCH ×3 (03:33→22:20)
[2019-06-13] MEDS: KETOROLAC TROMETHAMINE 30 MG/ML VIAL IV PRN ×2 (03:40→12:30)
--- NOTE | 2019-06-13 03:40 | NUR ---
patient medicated with toradol 15mg ivp for c/o headache 02/12 at this time.
[2019-06-13] MEDS: VALACYCLOVIR HCL 500 MG TAB PO SCH ×3 (05:02→21:49)
[2019-06-13] MEDS: INSULIN REGULAR, HUMAN 100 UNIT/1 ML 3ML VIAL SQ SCH ×4 (07:30→21:00)
[2019-06-13] MEDS: ONDANSETRON HCL INJ 2MG/ML 2ML 2 MG/ML VIAL IV PRN ×2 (08:50→12:42)
--- NOTE | 2019-06-13 12:26 | NUR ---
IM- progress note O/N no events ROS: no vision changes/cp/sob/leg pain/back pain/diarrhea/skin rash v/s revd PE tired appearing anicteric ns1s2 mod bs soft nt nd no e/t awake; oriented x3; Mild nuchal rigidity with contraction of legs and neck (Brudzinski sign) skin dry flat affect labs/meds; revd A/P: 53yoF Viral meningitis Febrile illness DM2 Overweight BMI 28.1 PLAN Supportive care; IV acyclovir; isolation; ID consult hba1c/lipids SCD 06/13 hba1c/LDL 83.1/128; fioricet for SINGH Javier Saez MD, PhD.
[2019-06-13] MEDS: PROMETHAZINE 12.5MG/ NACL 0.9% 12.5 MG/50 ML BAG IV PRN ×2 (13:29→21:49)
--- NOTE | 2019-06-13 17:32 | Progress Note ---
DATE: 06/13/2019 SUBJECTIVE: I met the patient asleep. The nursing staff report that she is still having headaches. No report of nausea, vomiting, or diarrhea. No other systemic complaints reported. OBJECTIVE: VITAL SIGNS: In the past 24 hours, she had temperatures up to 99.7 degrees Fahrenheit. Her current temperature is 98.3. GENERAL: She is hemodynamically stable. HEENT: She has no nuchal rigidity. CHEST: Symmetric. LUNGS: Clear. HEART: Sounds are regular without a significant murmur. ABDOMEN: Soft, nontender. Bowel sounds are normal. EXTREMITIES: There is no acute erythema of lower extremities. LABORATORY DATA: On June 12, her white count 8.4, hemoglobin 12.4, platelet count 271. Serum creatinine 0.6. CSF culture from June 11, shows no bacterial growth. Viral culture is pending. CSF, HSV 1 and 2 PCR reports are pending. IMPRESSION: She is on Valtrex for aseptic meningitis. The pharmacist informs me that they still do not have IV acyclovir. Hence, the patient is receiving Valtrex. Follow up on the CSF viral culture and HSV 1 and 2 PCR. If these are negative, discontinue the antivirals and monitor the patient clinically. MD SACHIN Mehta/GEMINI /[id number]
--- NOTE | 2019-06-13 19:00 | NUR ---
patient received awake, lying quietly in bed. no c/o pain noted ivf continue to infuse without difficulty. pm assessment complete. patient instructed to call for assistance when needed.
[2019-06-13] MEDS ORDERED: ACETAMINOPHEN 1000 MG/100 ML IV PRN (19:45)
[2019-06-13] MEDS ORDERED: ACETAMINOPHEN 1000 MG/100 ML 100 ML IV PRN (20:00)
--- NOTE | 2019-06-13 20:10 | NUR ---
patient medicated with tylenol 1000mg iv for headache pain 5/10 and temp 100.3. will continue to monitor.
--- NOTE | 2019-06-13 21:49 | NUR ---
patient medicated with phenergan 12.5mg iv for c/o nausea.
[2019-06-14] VITALS (7 sets, daily range): BP systolic 136–177; BP diastolic 60–83
--- NOTE | 2019-06-14 | NUR ---
patient appears to be resting quietly. no further c/o pain/nausea noted.
[2019-06-14] MEDS: VALACYCLOVIR HCL 500 MG TAB PO SCH ×3 (05:32→21:12)
--- NOTE | 2019-06-14 05:33 | NUR ---
patient oob to shower with assistance at this time.
[2019-06-14 06:59] LABS: BASOPHILS # (AUTO) 0.1 (0.0-0.1); BASOPHILS % 0.7 % (0.0-1.0); EOSINOPHILS # (AUTO) 0.2 (0.0-0.4); EOSINOPHILS % 3.5 % (0.0-6.0); HEMATOCRIT 38.3 % (34.2-44.1); HEMOGLOBIN 13.1 g/dL (12.0-16.0); LYMPHOCYTES # (AUTO) 2.4 (1.0-3.2); LYMPHOCYTES % 35.1 % (18.0-39.1); MEAN CORPUSCULAR HEMOGLOBIN 30.7 pg (28-32); MEAN CORPUSCULAR HGB CONC 34.2 g/dL (31-35); MEAN CORPUSCULAR VOLUME 89.7 fL (81-99); MONOCYTES # (AUTO) 0.6 (0.2-0.8); MONOCYTES % 8.4 % (4.4-11.3); NEUTROPHILS # (AUTO) 3.6 (2.1-6.9); PLATELET COUNT 286 x10e3/uL (140-360); RED BLOOD COUNT 4.27 x10e6/uL (3.6-5.1); RED CELL DISTRIBUTION WIDTH 11.9 % (11.7-14.4)
[2019-06-14 07:21] LABS: ANION GAP 13.6 mmol/L (8-16); BLOOD UREA NITROGEN 7 mg/dL (7-26); BUN/CREATININE RATIO 10 (6-25); CALCIUM 8.8 mg/dL (8.4-10.2); CARBON DIOXIDE 21 mmol/L (22-29); CHLORIDE 108 mmol/L (98-107); CREATININE, SERUM 0.73 mg/dL (0.57-1.11); EST GLOMERULAR FILTRATION RATE > 60 ML/MIN (60-); GLUCOSE 150 mg/dL (74-118); POTASSIUM 3.6 mmol/L (3.5-5.1); SODIUM 139 mmol/L (136-145)
[2019-06-14] MEDS: INSULIN REGULAR, HUMAN 100 UNIT/1 ML 3ML VIAL SQ SCH ×4 (08:42→21:12)
[2019-06-14] MEDS: PROMETHAZINE 12.5MG/ NACL 0.9% 12.5 MG/50 ML BAG IV PRN ×2 (08:46→23:00)
[2019-06-14] MEDS: KETOROLAC TROMETHAMINE 30 MG/ML VIAL IV PRN (08:46)
[2019-06-14] MEDS: SODIUM CHLORIDE 0.9% 1000ML 1,000 ML IV SCH ×3 (08:52→23:00)
--- NOTE | 2019-06-14 09:43 | NUR ---
IM- progress note O/N no events ROS: no vision changes/cp/sob/leg pain/back pain/diarrhea/skin rash v/s revd PE tired appearing anicteric ns1s2 mod bs soft nt nd no e/t awake; oriented x3; Mild nuchal rigidity with contraction of legs and neck (Brudzinski sign) skin dry flat affect labs/meds; revd A/P: 53yoF Viral meningitis Febrile illness DM2 Overweight BMI 28.1 PLAN Supportive care; IV acyclovir; isolation; ID consult hba1c/lipids SCD 06/13 hba1c/LDL 83.1/128; fioricet for SINGH 06/14 supportive care. Javier Saez MD, PhD.
--- NOTE | 2019-06-14 14:53 | Progress Note ---
DATE: 06/14/2019 SUBJECTIVE: The patient is alert and responsive. She states the headache comes and goes. No nausea or vomiting. No diarrhea. No other systemic complaints reported. OBJECTIVE: VITAL SIGNS: In the past 24 hours, she had temperatures up to 100.3 degrees Fahrenheit. Her most recent temperature of 98.1. She is hemodynamically stable. HEENT: There is no pallor. No icterus. No oropharyngeal lesions. NECK: Supple. CHEST: Symmetric. LUNGS: Clear. HEART: Sounds are regular without a significant murmur. ABDOMEN: Full, soft, nontender with normal bowel sounds. There is no acute erythema of the extremities. LABORATORY DATA: Her white count is 6.9, hemoglobin 13.1, platelet count 286. Serum creatinine 0.7. CSF culture is negative. CSF viral culture is pending. CSF HSV-1 and 2 PCR report is pending. IMPRESSION: She is on Valtrex substituted for acyclovir for aseptic meningitis while awaiting HSV PCR on CSF. Per pharmacist no acyclovir is available. The patient is fairly stable. I suggest to discontinue all NSAIDs. Continue treatment with acetaminophen and/or Fioricet. Follow up on these serologies and cultures. Continue to monitor clinical response to treatment. MD SACHIN Mehta/GEMINI /[id number]
[2019-06-14] MEDS: ACETAMIN/BUTALBITAL/CAFFEINE TAB PO PRN (15:23)
[2019-06-14] MEDS: ACETAMINOPHEN 325 MG TAB PO PRN (17:53)
--- NOTE | 2019-06-14 19:05 | NUR ---
Pt visited in room during nursing rounds. Patient alert and oriented x3. Patient having frequent headaches (MD aware). On IVF (NS at 125ml/hr). Pt ambulating in room prn. Call moulton within reach.
[2019-06-15] VITALS: BP 144/67
--- NOTE | 2019-06-15 02:24 | NUR ---
Patient appear agitated and mad and demanded to talk to charge nurse. Primary nurse (Pepito) attempted to ask patient what seems to be the problem and why patient was upset but patient does not want to talk to anybody except CN. Amy (BALTA) in room talking to patient at this time.
--- NOTE | 2019-06-15 02:25 | NUR ---
pt requesting to speak to charge nurse. upon assessment pt call moulton light in the middle of floor by door and iv pump beeping. pt appears agitated and upset. pt stated iv pump beeping for 40 min. pump and call moulton light plugged into outlet. pt stated she went to bathroom and almost fell. charge nurse attempted to apply bed alarm to prevent any falls. pt stated "don't patronize me and get out of my room." charge nurse left room. warehouse shipping supervisor and primary nurse notified of situation.
--- NOTE | 2019-06-15 02:30 | NUR ---
Charge nurse (Amy) came from patient room and stated she was kicked out of the room by the patient. Amy said that the patient claimed primary nurse (Pepito) pulled out call moulton and threw on the floor. Nurse (Pepito) and CN (Amy) spoke with Chemical Process Operator (Katie) about the situation and false accusations. Katie suggested to switch nurse. Katie stated she will talk to patient but would give patient to calm down for a while.
--- NOTE | 2019-06-15 02:42 | NUR ---
Gave report to Livia Weller (RN) as new primary care nurse for patient as per Radiology Asst request. Patient seem to want to have a different nurse to have till the morning.
--- NOTE | 2019-06-15 02:57 | NUR ---
Received report from Pepito VASQUEZ. Patient lying in bed, alert and oriented. Complaining of headache and feeling upset. Does not want pain medication at this time and would like to rest. All safety measures in place. Will continue to monitor.
[2019-06-15 04:00] VITALS: BP 143/70
[2019-06-15] MEDS: VALACYCLOVIR HCL 500 MG TAB PO SCH (05:26)
--- NOTE | 2019-06-15 05:26 | NUR ---
Upon entering room, witnessed patient disconnecting call light from wall. Reminded patient that the cord needs to be plugged in so that she can call for assistance if needed. Patient verbalized understanding. No s/s of distress or c/o pain at this time. All safety measures in place. Call light plugged in and placed within reach. Will continue to monitor.
[2019-06-15] MEDS: SODIUM CHLORIDE 0.9% 1000ML 1,000 ML IV SCH (06:18)
[2019-06-15] MEDS: ACETAMIN/BUTALBITAL/CAFFEINE TAB PO PRN ×2 (06:45→14:18)
--- NOTE | 2019-06-15 06:57 | NUR ---
Gave bedside report to day nurse. Patient resting in bed, alert and oriented, no s/s of distress at this time. Reports feeling upset about situation. Offered self to patient. All safety measures in place. Call light placed within reach. Patient instructed to call for assistance if needed. Verbalized understanding.
[2019-06-15] MEDS: INSULIN REGULAR, HUMAN 100 UNIT/1 ML 3ML VIAL SQ SCH ×2 (07:30→11:30)
[2019-06-15 07:41] VITALS: BP 148/73
[2019-06-15 08:00] VITALS: BP 148/73
[2019-06-15 09:35] LABS: BASOPHILS % 0.5 % (0.0-1.0); EOSINOPHILS # (AUTO) 0.3 (0.0-0.4); EOSINOPHILS % 2.8 % (0.0-6.0); HEMATOCRIT 38.2 % (34.2-44.1); LYMPHOCYTES # (AUTO) 3.7 (1.0-3.2); LYMPHOCYTES % 42.1 % (18.0-39.1); MEAN CORPUSCULAR HEMOGLOBIN 30.5 pg (28-32); MEAN CORPUSCULAR VOLUME 89.7 fL (81-99); MONOCYTES # (AUTO) 0.6 (0.2-0.8); MONOCYTES % 7.2 % (4.4-11.3); NEUTROPHILS # (AUTO) 4.2 (2.1-6.9); NEUTROPHILS % 47.2 % (38.7-80.0); PLATELET COUNT 278 x10e3/uL (140-360); RED BLOOD COUNT 4.26 x10e6/uL (3.6-5.1); RED CELL DISTRIBUTION WIDTH 11.8 % (11.7-14.4)
[2019-06-15 10:00] LABS: ANION GAP 13.4 mmol/L (8-16); BLOOD UREA NITROGEN 7 mg/dL (7-26); BUN/CREATININE RATIO 10 (6-25); CALCIUM 8.9 mg/dL (8.4-10.2); CARBON DIOXIDE 22 mmol/L (22-29); CHLORIDE 106 mmol/L (98-107); EST GLOMERULAR FILTRATION RATE > 60 ML/MIN (60-); GLUCOSE 192 mg/dL (74-118); POTASSIUM 3.4 mmol/L (3.5-5.1); SODIUM 138 mmol/L (136-145)
--- NOTE | 2019-06-15 13:26 | Progress Note ---
DATE: 06/15/2019 SUBJECTIVE: The patient is alert and responsive. She is complaining of less severe headache currently. She has noticed an area of erythema over the left breast. She denies any trauma. There is no report of nausea, vomiting, or diarrhea. OBJECTIVE: VITAL SIGNS: Maximum temperature in the past 24 hours was up to 99.9 degrees Fahrenheit. Today, she has had a temperature up to 100.2. Her most recent temperature is 98.3. She is hemodynamically stable. HEENT: She has no gross pallor. No obvious icterus. No oropharyngeal lesions. NECK: Supple. CHEST: Symmetric. There is a circumscribed area of erythema over the left breast almost regular as if an object made an imprint on the left breast. The chest is symmetric. LUNGS: Clear. HEART: Sounds are regular without a significant murmur. ABDOMEN: Full, soft, nontender with normal bowel sounds. No acute erythema of lower extremities. LABORATORY DATA: Her creatinine is 0.7. Her white count is 8.8, hemoglobin 13.0, platelet count 278. HSV-1 and 2 PCR on the CSF is negative. The viral culture on the CSF is pending. CSF culture is negative. IMPRESSION: She has been on Valtrex for aseptic meningitis. All HSV-1 and 2 PCR are negative. She was to be on acyclovir, which is not available in the pharmacy. She had low-grade temperatures with normal white count. The etiology is unclear because of the circumscribed erythema over the left breast is unclear. The patient is otherwise fairly stable. I suggest, given the negative PCR for HSV-1 and 2, discontinue Valtrex. If the patient remains otherwise stable from an Infectious Disease point she can be discharged any time now without antibiotics to continue follow up on an outpatient basis. She may call my office at [phone] to schedule outpatient infectious disease followup. MD SACHIN Mehta/GEMINI /[id number]
[2019-06-15] MEDS ORDERED: ACETAMINOPHEN325 M1 PO (14:14)
[2019-06-15] MEDS ORDERED: FIORICET 50-301 EACH (14:15)
--- NOTE | 2019-06-15 14:46 | NUR ---
Pt discharged home at this time. Prescription was called into pharmacy of pt choice by Dr. Saez. Pt and family verbalized understanding of all discharge instructions and follow up appt. Pt denies any pain at this time.
== END 2019-06-15 14:34 | disposition home or self-care (01) | DRG 76 ==
LOC: ER 15:30 → ERHOLD 21:00 → MED/SURG3 06-12 13:07
PROVIDERS: ADMIT Internal Medicine; ATTEND Internal Medicine
PROC: 009U3ZX Drainage of Spinal Canal, Percutaneous Approach, Diagnostic (ICD-10-PCS; principal; 2019-06-11)
DX: A87.9 Viral meningitis, unspecified (principal); E11.9 Type 2 diabetes mellitus without complications; E66.3 Overweight; Z68.28 Body mass index [BMI] 28.0-28.9, adult; Z79.4 Long term (current) use of insulin
CPT/HCPCS: 36415; 62270; 71045; 80048; 80053; 80061; 81001; 82945; 82948; 83036; 83518; 84157; 85025; 87070; 87205; 87400; 87529; 89051; 96372; 99284; J1817; J1885; J2001; J2270; J2405; J2550; J7030; J7050

== ENCOUNTER 2019-07-09 17:36 | Emergency (ER) | payer OTHER ==
[~2019-07-09] VITALS: Ht 167.6 cm; Wt 78.9 kg
[~2019-07-09 17:36] MED LIST changes: +ACETAMINOPHEN325 M1 PO; +FIORICET 50-301 EACH; +METFORMIN HCL500 MG PO
[2019-07-09] MEDS ORDERED: SODIUM CHLORIDE 0.9% 1000ML 1,000 ML IV STA (18:36)
[2019-07-09] MEDS ORDERED: ONDANSETRON HCL INJ 2MG/ML 2ML 2 MG/ML VIAL IV ONE (18:36)
[2019-07-09 18:54] LABS: BASOPHILS % 0.4 % (0.0-1.0); EOSINOPHILS # (AUTO) 0.2 (0.0-0.4); EOSINOPHILS % 1.8 % (0.0-6.0); HEMATOCRIT 39.3 % (34.2-44.1); HEMOGLOBIN 13.2 g/dL (12.0-16.0); LYMPHOCYTES % 39.4 % (18.0-39.1); MEAN CORPUSCULAR HEMOGLOBIN 30.6 pg (28-32); MEAN CORPUSCULAR HGB CONC 33.6 g/dL (31-35); MEAN CORPUSCULAR VOLUME 91.2 fL (81-99); MONOCYTES # (AUTO) 0.8 (0.2-0.8); MONOCYTES % 7.5 % (4.4-11.3); NEUTROPHILS # (AUTO) 5.2 (2.1-6.9); NEUTROPHILS % 50.6 % (38.7-80.0); PLATELET COUNT 242 x10e3/uL (140-360); RED BLOOD COUNT 4.31 x10e6/uL (3.6-5.1); RED CELL DISTRIBUTION WIDTH 12.9 % (11.7-14.4)
[2019-07-09 19:19] LABS: ALANINE AMINOTRANSFERASE 37 IU/L (0-55); ALBUMIN 3.7 g/dL (3.5-5.0); ALBUMIN/GLOBULIN RATIO 1.1 (0.8-2.0); ALKALINE PHOSPHATASE 114 IU/L (40-150); ANION GAP 12.2 mmol/L (8-16); BLOOD UREA NITROGEN 17 mg/dL (7-26); BUN/CREATININE RATIO 22 (6-25); CALCIUM 9.3 mg/dL (8.4-10.2); CARBON DIOXIDE 25 mmol/L (22-29); CHLORIDE 102 mmol/L (98-107); CREATINE KINASE 48 IU/L (29-168); CREATININE, SERUM 0.79 mg/dL (0.57-1.11); EST GLOMERULAR FILTRATION RATE > 60 ML/MIN (60-); GLUCOSE 225 mg/dL (74-118); POTASSIUM 4.2 mmol/L (3.5-5.1); SODIUM 135 mmol/L (136-145)
[2019-07-09 19:32] LABS: BILIRUBIN,URINE NEGATIVE (NEGATIVE); CLARITY,URINE SL CLOUDY (CLEAR); COLOR,URINE YELLOW (YELLOW); KETONES,URINE TRACE (NEGATIVE); LEUKOCYTE ESTERASE ,URINE TRACE (NEGATIVE); NITRITE,URINE NEGATIVE (NEGATIVE); PROTEIN,URINE DIPSTICK NEGATIVE (NEGATIVE); URINE UROBILINOGEN 0.2 mg/dL (0.2 - 1)
[2019-07-09 19:46] LABS: BACTERIA,URINE FEW /HPF; EPITHELIAL CELLS,URINE FEW /LPF
[2019-07-09] MEDS ORDERED: CEFTRIAXONE SOD 1 GM/NS 50 ML 50 ML IV ONE (19:49)
[2019-07-09 21:39] VITALS: BP 144/62
== END 2019-07-09 21:53 | disposition home or self-care (01) ==
LOC: ER 17:36
DX: R53.1 Weakness (principal); R11.0 Nausea; N39.0 Urinary tract infection, site not specified; M25.512 Pain in left shoulder; E11.9 Type 2 diabetes mellitus without complications; Z98.84 Bariatric surgery status
CPT/HCPCS: 36415; 80053; 81001; 82550; 82553; 82948; 84484; 85025; 93005; 99283; J0696; J2405; J7030